=== PATIENT | male | born 1960 | race Caucasian/White ===

== ENCOUNTER 2019-12-27 20:33 | Emergency (ER) | payer SELFPAY ==
[2019-12-27 20:34] VITALS: BP 134/79; PULSE 128; RESP 128; TEMP 36.7; O2SAT 96; BMI 22.8
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
[2019-12-27] MEDS: Diphth,Pertuss(Acell),Tet Vac 0.5 ML Vial IM (21:36)
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
[2019-12-27 21:58] LABS: Absolute Lymphocyte Count 3.59 X10^3/uL (0.83-4.51); Absolute Neutrophil Count 7.6 X10^3/uL (2.0-7.7); Basophil# 0.09 X10^3/uL; Basophil% 0.7 % (0-1); Eosinophil# 0.04 X10^3/uL; Eosinophils% 0.3 % (0-5); Hematocrit 49.1 % (40-54); Hemoglobin 16.6 g/dL (13.0-16.5); Lymphocyte # 3.59 X10^3/ul (4.0); Lymphocyte % 29.2 % (19-41); Mean Corp Hgb Conc 33.8 g/dL (32-36); Mean Corpuscular Hgb 31.6 pg (27.0-32.0); Mean Corpuscular Volume 93.3 fL (80-94); Mean Platelet Vol. 9.7 fl (6.2-12.0); Monocyte# 0.78 X10^3/uL; Monocyte% 6.3 % (0-10); NRBC Flagged by Analyzer 0 % (0-5); Neutrophil # 7.63 X10^3/uL (2.7-7.7); Neutrophil % 62.2 % (47-70); Platelet Count 540 K/mm3 (150-450); RBC Distribution Width CV 12.3 % (11.6-14.6); RBC Distribution Width SD 42.5 fl (35.1-43.9); Red Blood Count 5.26 M/mm3 (4.6-6.2); White Blood Count 12.3 K/mm3 (4.4-11.0)
[2019-12-27 22:07] LABS: Prothrombin Time (Protime)PT. 12.9 SECONDS (11.7-14.9)
[2019-12-27 22:08] LABS: Partial Thromboplast Time 27.3 Seconds (24.1-36.2)
[2019-12-27] MEDS: Morphine 4 MG/ML Syringe IV (22:17)
[2019-12-27 22:19] VITALS: BP 133/87; PULSE 97; RESP 30; O2SAT 97
[2019-12-27 22:19] LABS: AST(SGOT) 23 U/L (15-37); Alanine Aminotransfer ALT/SGPT 29 U/L (16-61); Albumin, Serum 3.8 g/dL (3.2-5.0); Alkaline Phosphatase 84 U/L (45-117); Anion Gap 8 (5-15); BUN 15 mg/dL (7-18); BUN/Creat Ratio 14.2 RATIO (10-20); Calcium,Total 9.2 mg/dL (8.5-10.1); Chloride 107 mmol/L (98-107); Creatinine, Serum 1.06 mg/dL (0.70-1.30); EST Glomerular Filtration Rate 76 mL/min (>60); Est Glom Filt Rate - Afr Amer 92 mL/min (>60); Estimated Creatinine Clearance 73.99 ml/min; Globulin 3.9 g/dL (2.2-4.2); Glucose 133 mg/dL (74-106); Potassium 3.2 mmol/L (3.5-5.1); Protein, Total 7.7 g/dL (6.4-8.2); Sodium Level 141 mmol/L (136-145)
[2019-12-27] MEDS: 0.9% Normal Saline 1,000 ML 999 ML IV (22:43)
[2019-12-27] MEDS: Ondansetron 4 MG/2 ML Vial IV (22:43)
[2019-12-27 23:20] VITALS: BP 133/87; PULSE 97; RESP 30; TEMP 36.7; O2SAT 97
== END 2019-12-27 23:15 | disposition short-term general hospital (02) ==
PROVIDERS: Emergency Provider Emergency Medicine
DX: S22.43XA Multiple fractures of ribs, bilateral, initial encounter for closed fracture (principal); S01.81XA Laceration without foreign body of other part of head, initial encounter; S41.112A Laceration without foreign body of left upper arm, initial encounter; I31.3 Pericardial effusion (noninflammatory); S20.219A Contusion of unspecified front wall of thorax, initial encounter; V43.52XA Car driver injured in collision with other type car in traffic accident, initial encounter; Y93.9 Activity, unspecified; Y92.9 Unspecified place or not applicable; F17.200 Nicotine dependence, unspecified, uncomplicated
CPT/HCPCS: 70450; 71250; 72125; 80053; 80320; 84484; 85025; 85610; 85730; 90715; 93005; 96361; 96374; 96375; 99285; J7030; A4216; G0480; J2405

== ENCOUNTER 2020-06-12 08:00 | Outpatient (RCR) | payer MEDICARE, SELFPAY ==
[2020-06-12] MEDS: COVID-19 VACC, MRNA(PFIZER)/PF 30 MCG/0.3 ML SYRINGE IM (15:38)
== END 2020-09-08 23:59 ==
LOC: IMMUN 08:00
PROVIDERS: Visit Provider Family Medicine
DX: Z23 Encounter for immunization (principal)
CPT/HCPCS: 0001A; 91300

== ENCOUNTER 2021-10-11 15:11 | Inpatient (IN) | payer MEDICAID, SELFPAY ==
[2021-10-11] VITALS (18 sets, daily range): BP systolic 103–144; BP diastolic 61–133; PULSE 63–113; RESP 14–26; TEMP 36.2–36.6; O2SAT 92–100; BMI 22.0; BMI 20.8
--- NOTE | 2021-10-11 15:30 | EKG12_ITS ---
Test Reason : Blood Pressure : / mmHG Vent. Rate : 064 BPM Atrial Rate : 064 BPM P-R Int : 148 ms QRS Dur : 110 ms QT Int : 458 ms P-R-T Axes : 055 -37 -45 degrees QTc Int : 472 ms Sinus rhythm with Premature atrial complexes Left axis deviation Left ventricular hypertrophy ( R in aVL , Sokolow-Steele , Vassar product , Romhilt-Garcia ) ST elevation consider anterolateral injury or acute infarct ACUTE OR / STEMI Abnormal ECG Confirmed by SURJIT MORALES, ELBA ([id number]), mapping editor JAMIE WALKER ([id number]) on 10/13/2021 10:47:56 AM Referred By: Fredi Tracy Confirmed By:ELBA EDDY MD
--- NOTE | 2021-10-11 15:30 | EKG12_ITS ---
Test Reason : Blood Pressure : / mmHG Vent. Rate : 077 BPM Atrial Rate : 077 BPM P-R Int : 150 ms QRS Dur : 104 ms QT Int : 420 ms P-R-T Axes : 038 -27 -48 degrees QTc Int : 475 ms Normal sinus rhythm Moderate voltage criteria for LVH, may be normal variant ( Sokolow-Steele , Surrency product ) ST elevation, consider early repolarization, pericarditis, or injury Nonspecific ST abnormality Abnormal ECG Confirmed by SURJIT MORALES, ELBA ([id number]), editor trade journal JAIME WALKER ([id number]) on 10/13/2021 10:48:20 AM Referred By: Fredi Tracy Confirmed By:ELBA EDDY MD
--- NOTE | 2021-10-11 15:31 | EDS_ITS ---
HPI History of Present Illness Chief Complaint: Chest Pain Narrative Narrative: 61-year-old male presenting with chest pain. He states it started about 1130. He describes it as chest pressure which is improved now. He states is about a 5 of 10. He states that he did have radiation to the bilateral arms. Currently its only going into the right arm. Patient states that he was sweaty and nauseous. He states he laid on the floor to try to feel better. He states he does not have any medical problems and the last time he saw physician was a couple years ago. He is an everyday smoker. He denies cardiac history. No history of DVT/PE and no risk factors. PFSH PFSH Medical History (Updated 10/11/21 @ 17:19 by Hoda Thapa) Alcohol abuse Bipolar disorder Chronic pain GERD (gastroesophageal reflux disease) Hypertension Substance abuse Medical History no medical history Home Medications hydrocodone-acetaminophen 5-325mg 5mg-325mg 1 - 2 tab PO Q4H PRN PRN Pain ##20 07/08/13 [Rx Last Taken Unknown] cephalexin 500 mg capsule 500 mg PO Q6 ##40 10/26/13 [Rx Last Taken Unknown] Vit B Complex & C No.19/FA/D3 01/20/14 [History Last Taken Unknown] Allergy/AdvReac Type Severity Reaction Status Date / Time No Known Allergies Allergy Verified 10/11/21 15:15 Surgical History (Updated 10/11/21 @ 17:19 by Hoda Thapa) History of appendectomy Surgical History no surgical history Social History Smoking Status: Current every day smoker tobacco type: cigarettes ROS ROS ED Constitutional Constitutional ED: Denies chills or fever(s) Eyes Eyes: Denies blurry vision or change in vision ENT ENT ED: Denies rhinorrhea or sore throat Cardiovascular Cardiovascular: Reports chest pain Respiratory/Chest Respiratory/Chest: Denies cough or dyspnea Gastrointestinal Gastrointestinal: Denies abdominal pain or constipation Genitourinary Genitourinary ED: Denies dysuria or hematuria Musculoskeletal Musculoskeletal: Denies arthralgias or back pain Integumentary Denies abscess Neurologic Neurologic: Denies headache(s) or paresthesias Psychiatric Psychiatric: Denies anxiety or depression EXAM Physical Exam Const Vital Signs: 10/11/21 15:12 10/11/21 15:12 10/11/21 15:31 Temperature 97.1 F L Temperature Source Temporal Pulse Rate 83 75 Respiratory Rate 20 H 20 H Blood Pressure 144/133 H 123/81 H Blood Pressure Mean 136 95 Pulse Ox 97 96 Oxygen Delivery Method Room Air Room Air Room Air 10/11/21 15:39 10/11/21 15:54 Temperature Temperature Source Pulse Rate 81 Respiratory Rate 16 Blood Pressure 121/81 H 116/80 Blood Pressure Mean Pulse Ox Oxygen Delivery Method Positive well nourished General Appearance ED: other Appears to be in pain ; Negative for pallor HEENT Reports moist mucous membranes and dry mucous membranes atraumatic Mouth ED: Yes dry mucous membranes Mouth: dry mucous membranes Eyes PERRL and EOMs intact bilaterally General Eye ED: Negative for pale conjunctiva or scleral icterus Resp normal respiratory effort and clear to auscultation bilaterally Effort and Inspection: Negative for respiratory distress Auscultation: Negative for rales, rhonchi or wheezes Cardio regular rate and regular rhythm GI normal to inspection, nondistended, normoactive bowel sounds Neuro oriented x3 and CN's II-XII intact bilaterally Sensorium / Orientation: awake and alert Motor Exam: strength 5/5 throughout Psych mental status grossly normal Skin General Skin Exam: Negative for jaundice or pallor Heart Score History: Highly Suspicious ECG: Nonspecific Repolarization Age: >45 - <65 years Risk Factors: 1 or 2 Risk Factors Score: 5 MDM MDM MDM Narrative Medical decision making narrative: Patient presenting with chest pain. He states he has no history of cardiac disease. He is a smoker. He has not seen a physician in 2 years. Patient reports he was diaphoretic and nauseous. He was laying on the ground to try to improve. I obtained an EKG on arrival which is sinus rhythm with a ventricular rate of 77 bpm with nonspecific repolarization. There is T wave inversions in lead II, 3, aVF. This does not appear to be a STEMI on my interpretation but I do believe it is slightly abnormal. Patient was given 1 dose of nitroglycerin and states he was having an odd sensation in his chest. Repeat EKG is performed and on my interpretation this shows an anterolateral OR. At this point a STEMI was called. Patient given heparin, Brilinta. He already received aspirin 324 mg p.o. Chest xray negative for acute findings Patient is currently receiving a 1 L bolus of IV fluids. Cardiology at bedside. Patient will be taken to the Economic Research Assistant. He is transported in stable condition. troponin returned at 327 after patient transported. CBC and BMP unremarkable. Impression: 1. STEMI Lab Data Attestation: I reviewed the patient's lab results. Labs: Laboratory Results - last 24 hr 10/11/21 10/11/21 15:15 15:15 WBC 11.0 RBC 5.34 Hgb 16.9 H Hct 49.6 MCV 92.9 MCH 31.6 MCHC 34.1 RDW Std Deviation 43.7 RDW Coeff of Reggie 12.9 Plt Count 447 MPV 9.8 Immature Gran % (Auto) 0.500 Neut % (Auto) 60.4 Lymph % (Auto) 27.8 Isabel[place] % (Auto) 8.8 Eos % (Auto) 1.9 Baso % (Auto) 0.6 Absolute Neuts (auto) 6.6 Absolute Lymphs (auto) 3.05 Nucleated RBC % 0 Sodium 142 Potassium 4.0 Chloride 106 Carbon Dioxide 27.0 Anion Gap 9 BUN 15 Creatinine 0.95 Estim Creat Clear Calc 77.89 Est GFR (MDRD) Af Amer 104 Est GFR (MDRD) Non-Af 86 BUN/Creatinine Ratio 15.8 Glucose 107 H Calcium 9.3 Troponin I High Sens 327 H* Radiography Diagnostic Testing: Clinical Impression(s) from Imaging Studies Chest X-Ray 10/11/21 15:44 IMPRESSION: Multiple rib fractures on the right, age indeterminate. Otherwise no acute disease. Electronically Signed: James Jimenez MD at 16:56 EDT Reading Location ID and State: [facility] / [place] , Service support , Discharge Plan Disposition Disposition: Acute Care Hospital [facility] Discharge Date/Time: 10/11/21 16:05
[2021-10-11] MEDS: 0.9% Normal Saline 1,000 ML 1000 ML IV (15:36)
[2021-10-11] MEDS: Aspirin 81 MG TAB.CHEW 324 MG PO (15:36)
[2021-10-11 15:38] LABS: Absolute Lymphocyte Count 3.05 X10^3/uL (0.83-4.51); Absolute Neutrophil Count 6.6 X10^3/uL (2.0-7.7); Basophil# 0.07 X10^3/uL; Basophil% 0.6 % (0-1); Eosinophil# 0.21 X10^3/uL; Eosinophils% 1.9 % (0-5); Hematocrit 49.6 % (40-54); Hemoglobin 16.9 g/dL (13.0-16.5); Lymphocyte # 3.05 X10^3/ul (0.83-4.51); Lymphocyte % 27.8 % (19-41); Mean Corp Hgb Conc 34.1 g/dL (32-36); Mean Corpuscular Hgb 31.6 pg (27.0-32.0); Mean Corpuscular Volume 92.9 fL (80-94); Mean Platelet Vol. 9.8 fl (6.2-12.0); Monocyte# 0.96 X10^3/uL; Monocyte% 8.8 % (0-10); NRBC Flagged by Analyzer 0 % (0-5); Neutrophil # 6.62 X10^3/uL (2.7-7.7); Neutrophil % 60.4 % (47-70); Platelet Count 447 K/mm3 (150-450); RBC Distribution Width CV 12.9 % (11.6-14.6); RBC Distribution Width SD 43.7 fl (35.1-43.9); Red Blood Count 5.34 M/mm3 (4.6-6.2)
[2021-10-11] MEDS: Nitroglycerin SL (ED/IMG/CATH) 0.4 MG TABLET SL (15:39)
--- NOTE | 2021-10-11 15:44 | RAD_ITS ---
STUDY: X-RAY CHEST REASON FOR EXAM: Male, 61 years old. chest pain TECHNIQUE: Single frontal view of the chest. COMPARISON: CT chest 12/27/2019 FINDINGS: The lungs are clear and expanded. There is no demonstrated pleural abnormality. Normal size heart. Normal mediastinum and julissa. Normal visualized pulmonary arteries. Normal visualized aortic arch and descending thoracic aorta. Normal visualized thoracic spine. Multiple rib fractures on the left, age indeterminate. There is no demonstrated abnormality of the visualized soft tissue structures of the upper abdomen. RAD/Chest 1 View (Portable) IMPRESSION: Multiple rib fractures on the right, age indeterminate. Otherwise no acute disease. Electronically Signed: James Jimenez MD at 16:56 EDT ,
[2021-10-11] MEDS: TICAGRELOR 90 MG TABLET 180 MG PO (15:56)
[2021-10-11] MEDS: Heparin Injection 5,000 UNITS/ML Syringe 5000 UNITS IV (15:56)
[2021-10-11 16:18] LABS: Anion Gap 9 (5-15); BUN 15 mg/dL (7-18); BUN/Creat Ratio 15.8 RATIO (10-20); Calcium,Total 9.3 mg/dL (8.5-10.1); Chloride 106 mmol/L (98-107); Creatinine, Serum 0.95 mg/dL (0.70-1.30); EST Glomerular Filtration Rate 86 mL/min (>60); Est Glom Filt Rate - Afr Amer 104 mL/min (>60); Estimated Creatinine Clearance 77.89 ml/min; Glucose 107 mg/dL (74-106); Sodium Level 142 mmol/L (136-145); Troponin-I HS (w/2H Reflex) 327 pg/mL (3.0-78.0)
--- NOTE | 2021-10-11 16:24 | CHAPLAIN ---
Type of Pastoral Visit ___ Initial Visit ___ Follow-up Visit ___ On-call Visit ___ General Patient Visit ___ Spiritual Assessment ___ Family Conference ___ Bereavement _x__ Rapid Response ___ Code Blue ___ Other (describe below) Pastoral Care Referral From ___ Patient ___ Family ___ Nurse ___ Physician ___ [place] Pen Cartridge Tester ___ Wire Preparation Worker _x__ Other (describe below) Sacrament/Intervention ___ Active listening ___ Anointing ___ Pentecostalism ___ Bereavement ___ Communion ___ Tonya exploration ___ ___ Life review ___ Prayer ___ Reconciliation ___ Sacrament of Sick _x__ Supportive presence ___ Wedding ___ Other (describe below) Pastoral Comments went to ED on stemi alert; patient was being prepped for Product Safety Coordinator; introduced self and asked if family members were coming; pt was actively texting family members at this moment and not sure if anyone was coming; pt was alert and being wheeled to Product Safety Coordinator; SW also available in ED for support if family arrived;
--- NOTE | 2021-10-11 16:54 | CM.ED ---
Social Work Note Reason for Referral: STEMI Alert SW responded to STEMI Alert. SW looked in pt's room, no family present. Chaplain Ferdinand, spoke with pt who was updating his family. SW to remain available should additional needs arise. Grisel Porter PAPER REEL OPERATOR, DENTAL AIDE
--- NOTE | 2021-10-11 17:11 | ECHOD_ITS ---
Reason For Study: S/P MD Procedure This was a 2D Doppler, Color Flow transthoracic echocardiogram. Exam performed portable in ICU/CCU. Left Ventricle Normal LV size. There is evidence of diastolic dysfunction. The estimated ejection fraction is 35 %. hypokinesis of the lateral wall and apex. Right Ventricle Normal RV size. Normal systolic function. Atria Normal left atrium. Normal right atrium. No doppler evidence for ASD. Mitral Valve There is no mitral valve stenosis. Trivial mitral valve insufficiency. Tricuspid Valve There is no tricuspid stenosis. Trivial tricuspid valve insufficiency. Unable to estimate RV systolic pressure due to insufficient tricuspid regurgitant envelope. Aortic Valve Trisinus/trileaflet aortic valve. There is no aortic stenosis. Trivial aortic valve insufficiency. Pulmonic Valve There is no pulmonic valvular stenosis. No pulmonic valve insufficiency. Great Vessels Normal aortic root. Pericardium/Pleural No pericardial effusion. MMode/2D Measurements & Calculations LVIDd: 5.8 cm IVSd: 1.4 cm Ao root diam: 3.2 cm LVIDs: 4.6 cm LVPWd: 1.2 cm RVDd: 3.5 cm FS: 20.5 % LAV(MOD-sp4): 54.1 ml LVAd ap4: 43.2 cm2 LVAd ap2: 42.5 cm2 LVLd ap4: 9.0 cm LVLd ap2: 8.6 cm EDV(MOD-sp4): 165.3 ml EDV(MOD-sp2): 183.5 ml EDV(sp4-el): 175.5 ml EDV(sp2-el): 177.9 ml LVAs ap4: 34.3 cm2 LVAs ap2: 32.3 cm2 LVLs ap4: 8.8 cm LVLs ap2: 8.1 cm ESV(MOD-sp4): 112.7 ml ESV(MOD-sp2): 112.4 ml ESV(sp4-el): 113.9 ml ESV(sp2-el): 109.0 ml EF(MOD-sp4): 31.8 % EF(MOD-sp2): 38.7 % EF(sp4-el): 35.1 % SV(MOD-sp4): 52.6 ml SV(MOD-sp2): 71.1 ml SV(sp4-el): 61.5 ml LA dimension(2D): 3.6 cm LA A4 area: 20.2 cm2 RA A4 area: 13.5 cm2 Time Measurements MV dec time: 0.20 sec Doppler Measurements & Calculations MV E max ramesh: 70.2 cm/sec Lat Peak E' Ramesh: 8.3 cm/sec Med Peak E' Ramesh: 5.8 cm/sec MV A max ramesh: 23.3 cm/sec E/E' lat: 8.4 E/E' med: 12.1 MV E/A: 3.0 MV dec slope: 355.6 cm/sec2 Ao V2 max: 112.1 cm/sec LV V1 max: 101.3 cm/sec Ao max P.0 mmHg LV V1 max P.1 mmHg MR max ramesh: 458.1 cm/sec MR max P.0 mmHg ECHO/Echo Complete Interpretation Summary The estimated ejection fraction is 35 %. There is evidence of diastolic dysfunction. hypokinesis of the lateral wall and apex Trivial mitral valve insufficiency. Trivial aortic valve insufficiency. Ordering Physician: Fredi Tracy Referring Physician: Fredi Tracy Performed By: Neli Arango RCS
--- NOTE | 2021-10-11 17:12 | PCM.CONS.C ---
Assessment & Plan Assessment/Plan (1) STEMI (ST elevation myocardial infarction): PLAN: treated with MORRO to D1. Recommend staged PCI of LCx. Will keep pt.on ASA, brilinta, BB, statin. Emphasized smoking cessation. Admit to CCU. 2d echo to check LVEF HPI Consult Data Date of Consult: 10/11/21 HPI Narrative Reason for Consultation: STEMI HPI Narrative: BAN ANSARI, is a 61 M who presents with chest pain on and off since 11 am today. When he presented to the ER he had pain which then resolved. He had pain again and an EKG done at 3:50 pm revealed more changes compared to the initial EKG consistent with anterolateral STEMI. He underwent emergent cardiac cath which revealed 90% stenosis in a large D1 branch that was treated with MORRO. He has residual 70-80% stenosis in the LCx that will be treated at a later date. There was a small OM2 branch that appears to be chronically occluded. Pt. is CP free at the end of the procedure. A 6 lead EKG done with the patient on the cath table revealed resolution of the ST elevagtion in I and aVL. PFSH Medical History (Updated 10/11/21 @ 17:19 by Hoda Thapa) Alcohol abuse Bipolar disorder Chronic pain GERD (gastroesophageal reflux disease) Hypertension Substance abuse Medical History no medical history Home Medications hydrocodone-acetaminophen 5-325mg 5mg-325mg 1 - 2 tab PO Q4H PRN PRN Pain ##20 07/08/13 [Rx Last Taken Unknown] cephalexin 500 mg capsule 500 mg PO Q6 ##40 10/26/13 [Rx Last Taken Unknown] Vit B Complex & C No.19/FA/D3 01/20/14 [History Last Taken Unknown] Allergy/AdvReac Type Severity Reaction Status Date / Time No Known Allergies Allergy Verified 10/11/21 15:15 Surgical History (Updated 10/11/21 @ 17:19 by Hoda Thapa) History of appendectomy Surgical History no surgical history Social History Smoking Status: Current every day smoker tobacco type: cigarettes Physical Exam Const alert, oriented x3 and no apparent distress HEENT normocephalic Eyes no scleral icterus Resp normal respiratory effort Cardio regular rate and regular rhythm Extremity no pedal edema Skin no rashes or lesions noted Psych mental status grossly normal Risk Stratification Risk Stratification Applicable: No Charges/Coding Visit Charges Inpatient E&M: 06252 Init Hosp L2 Objective Data Vital Signs: Vital Signs Temp Pulse Resp BP Pulse Ox O2 Del Method 97.1 F L 85 16 116/80 96 Room Air 10/11/21 15:12 10/11/21 17:04 10/11/21 15:54 10/11/21 15:54 10/11/21 15:12 10/11/21 15:31 Oxygen Delivery Method Room Air Weight: 145 lb Body Mass Index (BMI) 22.0 Lab / Micro Data Result Diagrams: 10/11/21 15:15 10/11/21 15:15 Labs: Laboratory Results - last 24 hr 10/11/21 15:15: WBC 11.0, RBC 5.34, Hgb 16.9 H, Hct 49.6, MCV 92.9, MCH 31.6, MCHC 34.1, RDW Std Deviation 43.7, RDW Coeff of Reggie 12.9, Plt Count 447, MPV 9.8, Immature Gran % (Auto) 0.500, Neut % (Auto) 60.4, Lymph % (Auto) 27.8, [place] % (Auto) 8.8, Eos % (Auto) 1.9, Baso % (Auto) 0.6, Absolute Neuts (auto) 6.6, Absolute Lymphs (auto) 3.05, Nucleated RBC % 0 10/11/21 15:15: Sodium 142, Potassium 4.0, Chloride 106, Carbon Dioxide 27.0, Anion Gap 9, BUN 15, Creatinine 0.95, Estim Creat Clear Calc 77.89, Est GFR (MDRD) Af Amer 104, Est GFR (MDRD) Non-Af 86, BUN/Creatinine Ratio 15.8, Glucose 107 H, Calcium 9.3, Troponin I High Sens 327 H* Cardiology Labs/Tests 10/11/21 15:15: WBC 11.0, RBC 5.34, Hgb 16.9 H, Hct 49.6, MCV 92.9, MCH 31.6, MCHC 34.1, Plt Count 447, MPV 9.8, Immature Gran % (Auto) 0.500, Neut % (Auto) 60.4, Lymph % (Auto) 27.8, [place] % (Auto) 8.8, Eos % (Auto) 1.9, Baso % (Auto) 0.6, Absolute Neuts (auto) 6.6, Nucleated RBC % 0 10/11/21 15:15: Sodium 142, Potassium 4.0, Chloride 106, Carbon Dioxide 27.0, Anion Gap 9, BUN 15, Creatinine 0.95, Est GFR (MDRD) Af Amer 104, Est GFR (MDRD) Non-Af 86, BUN/Creatinine Ratio 15.8, Glucose 107 H, Calcium 9.3 Rhythm: EKG: ECHO: Stress Test: Cardiac Cath: PCI: CT Surgery: Holter monitor: EPS: PPM: CXR: Chest CT Scan: Radiography Diagnostic Testing: Radiology Impression Chest X-Ray 10/11/21 15:44 IMPRESSION: Multiple rib fractures on the right, age indeterminate. Otherwise no acute disease. Electronically Signed: James Jimenez MD at 16:56 EDT ,
--- NOTE | 2021-10-11 17:15 | EKG12_ITS ---
Test Reason : AM EKG Blood Pressure : / mmHG Vent. Rate : 059 BPM Atrial Rate : 059 BPM P-R Int : 138 ms QRS Dur : 102 ms QT Int : 448 ms P-R-T Axes : 056 -07 -65 degrees QTc Int : 443 ms Sinus bradycardia Septal infarct , age undetermined , cannot be excluded T wave abnormality, consider anterior ischemia Abnormal ECG Confirmed by SURJIT MORALES, ELBA ([id number]), field map editor JAIME WALKER ([id number]) on 10/13/2021 10:52:39 AM Referred By: Fredi Tracy Confirmed By:ELBA EDDY MD
--- NOTE | 2021-10-11 17:24 | HP.PCM.HOS_ITS ---
HPI - General General Date of Admission: 10/11/21 Date of Service: 10/11/21 Chief Complaint: Chest discomfort HPI Narrative BAN ANSARI, is a 61 M with history of polysubstance abuse including alcohol as well as methamphetamine who presented to the emergency department with chest discomfort. Symptoms started around 11 AM on the morning of his admission. EKG obtained in the emergency department demonstrated ischemia in the anterior leads . This became more pronounced with ST segment elevation in aVL and L1 patient underwent emergency left heart catheterization and was found to have 90% stenosis in the large diagonal branch. He underwent PCI with a MORRO and subsequently transferred to the intensive care unit following his procedure [facility] Medical History Alcohol abuse Bipolar disorder Chronic pain GERD (gastroesophageal reflux disease) Hypertension Substance abuse Medical History no medical history Home Medications hydrocodone-acetaminophen 5-325mg 5mg-325mg 1 - 2 tab PO Q4H PRN PRN Pain ##20 07/08/13 [Rx Last Taken Unknown] cephalexin 500 mg capsule 500 mg PO Q6 ##40 10/26/13 [Rx Last Taken Unknown] Vit B Complex & C No.19/FA/D3 01/20/14 [History Last Taken Unknown] Allergy/AdvReac Type Severity Reaction Status Date / Time No Known Allergies Allergy Verified 10/11/21 15:15 Family History (Updated 10/11/21 @ 17:[address] Kyle Holder MD) Brother Pancreatic cancer other Surgical History (Updated 10/11/21 @ 17:19 by Hoda Thapa) History of appendectomy Surgical History no surgical history Social History Smoking Status: Current every day smoker tobacco type: cigarettes ROS ROS Narrative GENERAL: denies fever, chills, night sweats, HEENT: denies headache, sinus congestion, RESPIRATORY: denies cough, sputum production, CARDIAC: chest pain, palpitations, orthopnea, PND GASTROINTESTINAL: denies abdominal pain, nausea, GENITOURINARY: denies dysuria, urgency, frequency, heamaturia EXTREMITY: denies swelling MUSCULOSKELETAL: denies current joint pain or tenderness NEUROLOGIC: denies focal numbness, weakness, tingling HEMATOLOGIC: denies easy bruising and/or hemorrhage INTEGUMENT: denies rashes PSYCHIATRIC: denies suicidal or homicidal ideation Vital Signs Vital Signs Vital Signs: 10/11/21 15:12 10/11/21 15:12 10/11/21 15:31 Temperature 97.1 F L Temperature Source Temporal Pulse Rate 83 75 Respiratory Rate 20 H 20 H Blood Pressure 144/133 H 123/81 H Blood Pressure Mean 136 95 Pulse Ox 97 96 Oxygen Delivery Method Room Air Room Air Room Air 10/11/21 15:39 10/11/21 15:54 10/11/21 17:04 Temperature Temperature Source Pulse Rate 81 85 Respiratory Rate 16 Blood Pressure 121/81 H 116/80 Blood Pressure Mean Pulse Ox Oxygen Delivery Method Weight Weight: 64 kg Body Mass Index (BMI) 20.8 Results Lab / Micro Data Result Diagrams: 10/11/21 15:15 10/11/21 15:15 Labs: Laboratory Results - last 24 hr 10/11/21 15:15: WBC 11.0, RBC 5.34, Hgb 16.9 H, Hct 49.6, MCV 92.9, MCH 31.6, MCHC 34.1, RDW Std Deviation 43.7, RDW Coeff of Reggie 12.9, Plt Count 447, MPV 9.8, Immature Gran % (Auto) 0.500, Neut % (Auto) 60.4, Lymph % (Auto) 27.8, [place] % (Auto) 8.8, Eos % (Auto) 1.9, Baso % (Auto) 0.6, Absolute Neuts (auto) 6.6, Absolute Lymphs (auto) 3.05, Nucleated RBC % 0 10/11/21 15:15: Sodium 142, Potassium 4.0, Chloride 106, Carbon Dioxide 27.0, Anion Gap 9, BUN 15, Creatinine 0.95, Estim Creat Clear Calc 77.89, Est GFR (MDRD) Af Amer 104, Est GFR (MDRD) Non-Af 86, BUN/Creatinine Ratio 15.8, Glucose 107 H, Calcium 9.3, Troponin I High Sens 327 H* Radiology Impression Chest X-Ray 10/11/21 15:44 IMPRESSION: Multiple rib fractures on the right, age indeterminate. Otherwise no acute disease. Electronically Signed: James Jimenez MD at 16:56 EDT , Assessment & Plan Assessment/Plan (1) STEMI (ST elevation myocardial infarction): PLAN: Plan Patient is a 61-year-old gentleman who presented with chest discomfort asses sment was consistent with acute STEMI underwent emergency left heart catheterization with PCI and MORRO to large D1 branch 1. Acute non-STEMI (anterolateral STEMI) ? Underwent emergency left heart catheterization found to have a large D1 stenosis, 70 to 80% stenosis in the left circumflex and a small OM 2 branch that appears to be chronically occluded. Patient underwent PCI with MORRO to the diagonal branch lesion with plans for patient to undergo staged intervention of his left circumflex lesion intervention 2. Essential hypertension ? Currently not on any medication 3. Bipolar disorder ? Per history 4. Chronic alcohol dependence ? Patient was counseled on cessation we will place on Ativan for DT precautions 5. Polysubstance dependence including methamphetamine use ? Counseled on cessation 6. Tobacco dependence - Counseled on cessation, offered nicotine patch for tobacco cravings 7. DVT prophylaxis ? FABIAN Odell Charges/Coding Visit Charges Inpatient E&M: 44403 Init Hosp L3
[2021-10-11 17:35] LABS: Reflex Troponin-HS? (from REC) Y
--- NOTE | 2021-10-11 17:42 | CL.I_ITS ---
Patient Name: BAN ANSARI Study Date: 10/11/2021 Performing: Adebayo Tracy MD Ht: 68 inches 173 cm : 1960 Wt: 145.7 lbs 66 kg Age: 61 Gender: male BSA: 1.79 PROCEDURE(S) PERFORMED [id number])[facility] [id number])AMI, MORRO OR PTCA, ARTERY/GRAFT, SINGLE VESSEL CLINICAL PROFILE AND CO-MORBIDITIES Indications: ACS <= 24 hrs Heart Failure: None Stress/Imaging Stress/Image Study Performed: No CAD Presentations: STEMI. Symptom onset Date/Time: 10/11/21 Time: 11 am CONCLUSIONS CAD as described. Successful PCI of D1 with MORRO. RECOMMENDATIONS Staged PCI of LCx in 3-4 weeks DESCRIPTION OF PROCEDURE The patient arrived to the procedure lab. The risks and benefits of the procedure as well as a full d escription of our services here and lack of surgical backup were fully explained to the patient and/o r their significant other prior to the catheterization. The Timeout was completed, verifying the frankie ect patient and procedure. The patient's procedural site was prepped and draped in the usual fashion. Local anesthetic was given subcutaneously to right radial region with Lidocaine 2%. Using a modified Seldinger technique, . Right Coronary Artery selective angiography was then performed in multiple v iews using a 5 Fr. JR 4 catheter XB 3.0 Guide catheter was inserted and engaged into the LCA. Runthrough Guide wire was advanced t o the 1st Diagonal. Emerge 2.00x12 Balloon catheter was inserted. PTCA balloon inflated at 10 atms fo r 20 secs. Angiogram performed post balloon dilatation. Orsiro 3.0x26 Drug Eluting stent was inserted . Angiogram performed post stent deployment. NC Emerge 3.00x20 Balloon catheter was inserted. Angiogr am performed post balloon dilatation. The arterial sheath was pulled and a TR Band was applied for hemostasis. The arterial sheath was pulled and a TR Band was applied for hemostasis w/13 ml air CORONARY ANGIOGRAPHY DOMINANCE: Right Dominant LEFT HEART ASSESSMENT LEFT MAIN: Mild luminal irregularities LEFT ANTERIOR DESCENDING ARTERY: Mild luminal irregularities. Small vessel and is intramyocardial. DIAGONAL 1: Proximal - 90-95 % Stenosis. Large vessel CIRCUMFLEX ARTERY: PROX CIRC: 70-80 % Stenosis OM 2: Proximal - is occluded. Appears to be chronic. We attempted to cross this lesion after PCI of D 1 and were unsuccessful. OM 3: Ostial - 70-80 % Stenosis RIGHT CORONARY ARTERY: Mild luminal irregularities VALVE FINDINGS: No Aortic Valve Stenosis INTERVENTION INFORMATION LESION SITE: 1st Diagonal (Proximal) Lesion Complexity: High/C, chronic total occlusion: No, lesion at bifurcation: No, thrombus present: No, lesion length: 24 mm, culprit lesion: Yes, Previously treated lesion: No Pre Stenosis: 95 % Pre intervention JENNIFER flow: 3 PROCEDURE: Drug Eluting Stent with pre and post dilatation Post Stenosis: 0 % Post intervention JENNIFER flow: 3 Lesion Devices: Terumo .014 Runthrough Extra Floppy 180cm straight Alex Sci EMERGE MR 2.00x12 BALLOON Biotronik Orsiro [place] MR MORRO 3.0x26 Alex Sci NC EMERGE MR 3.00x20 BALLOON COMPLICATIONS No Complications PROCEDURE MEDICATIONS Oxygen: 2 L/min via nasal cannula Heparin given IA 10/11/2021 16:10:59 Verapamil 2.5mg, Ntg 100mcgs, 1000 units of Heparin given IA 10/11/2021 16:10:59 SUMMARY OF HEMODYNAMIC DATA Time AIR REST ECG 16:07:57 LV 126/-4, 2 16:13:19 LV 134/0, 20 16:13:25 LVp 122/-1, 9 16:13:41 AOp 117/66 (86) 16:13:46 AO 111/65 (82) SA 16:13:48 ECG 16:43:08 Signed By Adebayo Tracy MD On 10/11/2021 17:42:03 Adebayo Tracy MD
[2021-10-11] MEDS: 0.9% Normal Saline 1,000 ML 60 ML IV (17:54)
[2021-10-11 19:29] LABS: Prothrombin Time (Protime)PT. 12.8 SECONDS (11.7-14.9)
[2021-10-11 19:30] LABS: Partial Thromboplast Time 31.5 Seconds (24.1-36.2)
[2021-10-11] MEDS: Metoprolol Tartrate 25 MG Tablet 12.5 MG PO (21:16)
[2021-10-11] MEDS: Famotidine 20 MG Tablet PO (21:16)
[2021-10-11] MEDS: Atorvastatin Calcium 40 MG Tablet PO (21:17)
[2021-10-11] MEDS: TICAGRELOR 90 MG TABLET PO (21:17)
[2021-10-12] VITALS (20 sets, daily range): BP systolic 94–123; BP diastolic 53–78; PULSE 55–86; RESP 12–23; TEMP 36.5–36.8; O2SAT 97–100
[2021-10-12 05:17] LABS: Hemoglobin 14.7 g/dL (13.0-16.5); Mean Corp Hgb Conc 34.2 g/dL (32-36); Mean Corpuscular Volume 93.7 fL (80-94); Mean Platelet Vol. 9.4 fl (6.2-12.0); Platelet Count 377 K/mm3 (150-450); RBC Distribution Width SD 44.3 fl (35.1-43.9); Red Blood Count 4.59 M/mm3 (4.6-6.2); White Blood Count 11.1 K/mm3 (4.4-11.0)
[2021-10-12 05:45] LABS: ALB/GLOB Ratio 0.9 RATIO (0.9-2.4); AST(SGOT) 47 U/L (15-37); Alanine Aminotransfer ALT/SGPT 26 U/L (16-61); Albumin, Serum 2.8 g/dL (3.2-5.0); Alkaline Phosphatase 62 U/L (45-117); Anion Gap 6 (5-15); BUN 13 mg/dL (7-18); BUN/Creat Ratio 16.3 RATIO (10-20); Bilirubin, Direct 0.14 mg/dL (0.00-0.30); Calcium,Total 8.4 mg/dL (8.5-10.1); Chloride 109 mmol/L (98-107); EST Glomerular Filtration Rate 106 mL/min (>60); Est Glom Filt Rate - Afr Amer 128 mL/min (>60); Estimated Creatinine Clearance 90.42 ml/min; Globulin 3.2 g/dL (2.2-4.2); Glucose 99 mg/dL (74-106); Magnesium 2.3 mg/dL (1.6-2.6); Potassium 4.2 mmol/L (3.5-5.1); Sodium Level 141 mmol/L (136-145); Thyroid Stim Hormone (TSH) 1.52 uIU/mL (0.358-3.74)
--- NOTE | 2021-10-12 07:22 | PCM.PN.HOSP ---
Subjective Subjective Patient is a 61-year-old gentleman with history of polysubstance abuse admitted with chest pain found to have STEMI underwent PCI with intervention admitted to the intensive care unit subsequently Seen this a.m. patient denies any chest discomfort. Telemetry monitoring did shows some occasional ectopic beats Objective Data Objective Data Vital Signs: Vital Signs Temp Pulse Resp BP Pulse Ox O2 Del Method 97.7 F L 61 20 H 104/67 99 Room Air 10/12/21 04:00 10/12/21 07:00 10/12/21 07:00 10/12/21 07:00 10/12/21 07:00 10/12/21 07:00 Oxygen Delivery Method Room Air Weight: 64.3 kg Body Mass Index (BMI) 20.8 Intake & Output: Intake and Output for Last 24 Hours 10/10/21 10/11/21 10/12/21 23:59 23:59 23:59 Intake Total 1336 / 1336 Balance 1336 / 1336 Lab / Micro Data Result Diagrams: 10/12/21 05:11 10/12/21 05:11 Labs: Laboratory Results - last 24 hr 10/11/21 15:15: WBC 11.0, RBC 5.34, Hgb 16.9 H, Hct 49.6, MCV 92.9, MCH 31.6, MCHC 34.1, RDW Std Deviation 43.7, RDW Coeff of Reggie 12.9, Plt Count 447, MPV 9.8, Immature Gran % (Auto) 0.500, Neut % (Auto) 60.4, Lymph % (Auto) 27.8, [place] % (Auto) 8.8, Eos % (Auto) 1.9, Baso % (Auto) 0.6, Absolute Neuts (auto) 6.6, Absolute Lymphs (auto) 3.05, Nucleated RBC % 0 10/11/21 15:15: Sodium 142, Potassium 4.0, Chloride 106, Carbon Dioxide 27.0, Anion Gap 9, BUN 15, Creatinine 0.95, Estim Creat Clear Calc 77.89, Est GFR (MDRD) Af Amer 104, Est GFR (MDRD) Non-Af 86, BUN/Creatinine Ratio 15.8, Glucose 107 H, Calcium 9.3, Troponin I High Sens 327 H* 10/11/21 15:15: PT 12.8, INR 1.0, APTT 31.5 10/12/21 05:11: WBC 11.1 H, RBC 4.59 L, Hgb 14.7, Hct 43.0, MCV 93.7, MCH 32.0, MCHC 34.2, RDW Std Deviation 44.3 H, RDW Coeff of Reggie 13.0, Plt Count 377, MPV 9.4 10/12/21 05:11: Sodium 141, Potassium 4.2, Chloride 109 H, Carbon Dioxide 26.0, Anion Gap 6, BUN 13, Creatinine 0.80, Estim Creat Clear Calc 90.42, Est GFR (MDRD) Af Amer 128, Est GFR (MDRD) Non-Af 106, BUN/Creatinine Ratio 16.3, Glucose 99, Calcium 8.4 L, Magnesium 2.3, Total Bilirubin 0.80, Direct Bilirubin 0.14, AST 47 H, ALT 26, Alkaline Phosphatase 62, Total Protein 6.0 L, Albumin 2.8 L, Globulin 3.2, Albumin/Globulin Ratio 0.9, TSH 1.52 10/12/21 05:11: Phosphorus 3.0 Radiography Diagnostic Testing: Radiology Impression Chest X-Ray 10/11/21 15:44 IMPRESSION: Multiple rib fractures on the right, age indeterminate. Otherwise no acute disease. Electronically Signed: James Jimenez MD at 16:56 EDT , Physical Exam Narrative GENERAL: cooperative HEENT: Atraumatic; EYES; Anicteric, Normal Conjunctiva NECK; supple, normal thyroid, RESPIRATORY: Diminished to auscultation CARDIOVASCULAR: Regular S1 S2, GI: soft, normoactive bowel sounds, : No Renal angle tenderness; EXTREMITIES: No edema, no clubbing, MUSCULOSKELETAL: no muscle wasting NEURO: Awake; no lateralizing signs. SKIN: No Rash PSYCH; Flat affect Assessment & Plan Assessment/Plan (1) STEMI (ST elevation myocardial infarction): PLAN: Plan Patient is a 61-year-old gentleman who presented with chest discomfort assessment was consistent with acute STEMI underwent emergency left heart catheterization with PCI and MORRO to large D1 branch 1. Acute non-STEMI (anterolateral STEMI) ? Underwent emergency left heart catheterization found to have a large D1 stenosis, 70 to 80% stenosis in the left circumflex and a small OM 2 branch that appears to be chronically occluded. Patient underwent PCI with MORRO to the diagonal branch lesion with plans for patient to undergo staged intervention of his left circumflex lesion intervention -10/12/2021 postprocedure day 1. Patient denies any chest discomfort 2. Essential hypertension ? Currently not on any medication 3. Bipolar disorder ? Per history 4. Chronic alcohol dependence ? Patient was counseled on cessation we will place on Ativan for DT precautions ? 10/12/2021 patient was placed on phenobarb taper 5. Polysubstance dependence including methamphetamine use ? Counseled on cessation 6. Tobacco dependence - Counseled on cessation, offered nicotine patch for tobacco cravings 7. DVT prophylaxis ? FABIAN Odell Charges/Coding Visit Charges Inpatient E&M: 84894 Subs Hosp L3
[2021-10-12] MEDS: Famotidine 20 MG Tablet PO ×2 (09:04→21:12)
[2021-10-12] MEDS: Aspirin E.C. 81 MG Tablet PO (09:04)
[2021-10-12] MEDS: Metoprolol Tartrate 25 MG Tablet 12.5 MG PO ×2 (09:04→21:11)
[2021-10-12] MEDS: TICAGRELOR 90 MG TABLET PO ×2 (09:04→21:11)
[2021-10-12] MEDS: Enoxaparin 40 MG/0.4 ML Syringe SC (09:04)
--- NOTE | 2021-10-12 09:35 | CASEMGMT ---
KEMAR REA Face to Face with patient for initial transition planning/care coordination assessment. KEMAR REA introduced self and role at [facility]. Patient lying in bed, alert and oriented. Patient willing to participate in assessment and is able to answer all questions appropriately. Care providers, pharmacy, and demographics verified. Patient wishes to discharge home, denies need for home health at this time. Patient states he has no further needs or concerns at this time. CM to follow for discharge planning needs that may arise. PCP: no PCP, list provided to patient Specialists: none Preferred Pharmacy: [facility] Insurance: [employer] Prescription Benefit: yes Living Will/HPOA: none LNOK: Brother Living Arrangements: Patient lives with brother in a 2 story home. Patient states he is independent at home and able to ambulate stairs. Transportation: self, brother DME/HHC: Patient states he has cane and grab bars at home. Patient denies previous HHC or SNF Patient states he smokes 1/3 PPD of cigarettes and drinks 12 pack of beer daily. KEMAR REA discussed addiction resources with patient, patient agreeable to speak with TAM. KEMAR REA called and updated TMA Nieves. Disposition Plan: Patient to discharge home with family support and follow-up plans in place. Grisel MARIE, RN, CM
--- NOTE | 2021-10-12 10:14 | CRPHASE1 ---
Patient Communication PHII Cardiac Rehab Discussed with Patient:: Yes Guide to Cardiac Rehab Given to Patient:: Yes Cardiac Rehab Facility Choice List Given to Patient:: Yes Choice Program [facility] CR PHII:: Communication Given to CR Choice Program Other:: Communication Given to CR Supervisor Agricultural Education:: Fredi Tracy Refer Phase II Cardiac Rehab:: Yes Sessions:: 36 sessions - 3 days/wk, 12 weeks Cardiac Rehabilitation Info Cardiac Rehabilitation Program Information: Cardiac Rehabilitation is important for patients like you who are recovering from a heart problem. Cardiac rehabilitation programs are recognized as integral to the continued care of the patient with coronary heart disease. The cardiac rehabilitation program is designed to optimize a patient's physical, psychological, and social functioning. Health home health care social worker work in cardiac rehabilitation programs and assist you with getting the treatments you need to get stronger and healthier - like exercise, healthy eating habits, and medications. Cardiac rehabilitation has been show to help people with heart problems live longer and have better life enjoyment than people who do not go to cardiac rehabilitation. Please contact the Cardiac Rehabilitation Program at [facility] at in two weeks if you have not heard from them.
--- NOTE | 2021-10-12 10:15 | CRPH1.INSTRU ---
General Education CAD and cardiac anatomy and function:: Patient communicates acknowledgment Explanation of diagnoses and procedures:: Patient communicates acknowledgment Sign/Symptoms of HI:: Patient communicates acknowledgment Antiplatelet therapy: Patient communicates acknowledgment Smoking Patient Nicotine/Smoking Risk Factors Are:: Cigarettes Recommendations Include:: Smoking cessation strategies/Smoking packet, Participation in a smoking cessation program Nicotine/Smoking Response Code:: Patient communicates acknowledgment Dyslipidemia Patient Dyslipidemia Risk Factors Are:: Total Cholesterol, Triglycerides, HDL, LDL Recommendations Include:: Lipid profile not available, Reviewed NCEP/ATP guidelines, Therapeutic Lifestyle Change dietary guidelines Dyslipidemia Response Code:: Patient communicates acknowledgment Overweight/Obesity Patient Overweight/Obesity Risk Factors Are:: BMI Normal [18-25 & < 65 years old] Overweight/Obesity:: Patient communicates acknowledgment Hypertension Recommendations Include:: Maintain BP <130/85, DASH dietary guidelines, Decrease/maintain normal body weight, Moderation of ETOH Hypertension:: Patient communicates acknowledgment Diabetes Patient Diabetes Risk Factors Are:: No documented hx of diabetes Metabolic Syndrome Recommendations Include:: Does not meet criteria Sedentary Patient Sedentary Risk Factors Are:: Lack of regular exercise Recommendations Include:: Aerobic exercise 5-7 times/week for 20-30 minutes continuously, Benefits of regular exercise, Discussed home walking program, Monitored Outpatient Cardiac Rehab Sedentary Response Code:: Patient communicates acknowledgment Stress Recommendations Include:: Identification of stressors, and assessment of coping skills, Stress management techniques Stress Response Code:: Patient communicates acknowledgment
--- NOTE | 2021-10-12 14:31 | CASEMGMT ---
TAM reviewed patient's chart and noted his alcohol and Meth use. RN ÁLVARO also spoke with patient. TAM met with patient. Introduced self and role at [facility]. SW provided patient with counseling/addiction resources, AA meeting list, as well as Stages of Change. Patient thanked TAM. Madelyn Nieves [employer] MARSHALOtto SIDHU
--- NOTE | 2021-10-12 15:30 | EKG12_ITS ---
Test Reason : STEMI Blood Pressure : / mmHG Vent. Rate : 079 BPM Atrial Rate : 079 BPM P-R Int : 156 ms QRS Dur : 104 ms QT Int : 438 ms P-R-T Axes : 063 -28 -51 degrees QTc Int : 502 ms Sinus rhythm with Premature atrial complexes Septal infarct , age undetermined , cannot be excluded ST & T wave abnormality, consider inferior ischemia ST & T wave abnormality, consider anterior ischemia Prolonged QT Abnormal ECG Confirmed by SURJIT MORALES, ELBA ([id number]), news editor JAIME WALKER ([id number]) on 10/13/2021 10:53:10 AM Referred By: Fredi Tracy Confirmed By:ELBA EDDY MD
--- NOTE | 2021-10-12 17:15 | EKG12_ITS ---
Test Reason : am ekg Blood Pressure : / mmHG Vent. Rate : 070 BPM Atrial Rate : 070 BPM P-R Int : 144 ms QRS Dur : 104 ms QT Int : 420 ms P-R-T Axes : 044 -19 134 degrees QTc Int : 453 ms Sinus rhythm with marked sinus arrhythmia Minimal voltage criteria for LVH, may be normal variant ( [place] product ) ST & Marked T wave abnormality, consider anterolateral ischemia Abnormal ECG Confirmed by SURJIT MORALES, ELBA ([id number]), fan mail editor JAIME WALKER ([id number]) on 10/14/2021 9:26:38 AM Referred By: Fredi Tracy Confirmed By:ELBA EDDY MD
[2021-10-12] MEDS: Atorvastatin Calcium 40 MG Tablet PO (21:12)
[2021-10-13 02:30] VITALS: BP 116/70; PULSE 60; RESP 14; TEMP 36.6; O2SAT 100
[2021-10-13 03:07] VITALS: PULSE 60
[2021-10-13 06:41] LABS: Anion Gap 2 (5-15); BUN 20 mg/dL (7-18); BUN/Creat Ratio 21.6 RATIO (10-20); Calcium,Total 8.6 mg/dL (8.5-10.1); Chloride 107 mmol/L (98-107); Creatinine, Serum 0.92 mg/dL (0.70-1.30); EST Glomerular Filtration Rate 89 mL/min (>60); Est Glom Filt Rate - Afr Amer 108 mL/min (>60); Estimated Creatinine Clearance 78.63 ml/min; Glucose 98 mg/dL (74-106); Potassium 4.2 mmol/L (3.5-5.1); Sodium Level 136 mmol/L (136-145)
[2021-10-13 07:00] VITALS: PULSE 57
--- NOTE | 2021-10-13 07:43 | PCM.DC.SUM ---
Providers Date of Admission: 10/11/21 Primary Care Physician: Astrid Primary Care Phys Reason For Visit: ACUTE STEMI Diagnosis Discharge Diagnosis (1) STEMI (ST elevation myocardial infarction): Status: Deleted Code(s): I21.3 - ST elevation (STEMI) myocardial infarction of unspecified site Plan Patient is a 61-year-old gentleman who presented with chest discomfort assessment was consistent with acute STEMI underwent emergency left heart catheterization with PCI and MORRO to large D1 branch 1. Acute non-STEMI (anterolateral STEMI) ? Underwent emergency left heart catheterization found to have a large D1 stenosis, 70 to 80% stenosis in the left circumflex and a small OM 2 branch that appears to be chronically occluded. Patient underwent PCI with MORRO to the diagonal branch lesion with plans for patient to undergo staged intervention of his left circumflex lesion intervention -10/12/2021 postprocedure day 1. Patient denies any chest discomfort -10/13/2021 with; patient seen stable for discharge. Case discussed with cardiology Dr. Tracy patient will be brought back for staged PCI of his circumflex lesion. 2. Essential hypertension ? Currently not on any medication 3. Bipolar disorder ? Per history 4. Chronic alcohol dependence ? Patient was counseled on cessation we will place on Ativan for DT precautions ? 10/12/2021 patient was placed on phenobarb taper 5. Polysubstance dependence including methamphetamine use ? Counseled on cessation 6. Tobacco dependence - Counseled on cessation, offered nicotine patch for tobacco cravings 7. DVT prophylaxis ? SC Lovenox Medications at Discharge Home Medications Vit B Complex & C No.19/FA/D3 01/20/14 aspirin 81 mg tablet,delayed release 81 mg PO DAILY@0800 #90 tabs 10/13/21 atorvastatin 40 mg tablet 40 mg PO QHS #90 tabs 10/13/21 lisinopril 2.5 mg tablet 2.5 mg PO DAILY #90 tabs 10/13/21 metoprolol succinate 25 mg tablet,extended release 24 hr (Toprol XL) 25 mg PO DAILY #90 tabs 10/13/21 ticagrelor 90 mg tablet (Brilinta) 90 mg PO BID #180 tabs 10/13/21 Hospital Course Summary of Care Provided Minutes Spent on Discharge: 35 Hospital Course: Patient is a 61-year-old gentleman who presented with chest discomfort assessment was consistent with acute STEMI underwent emergency left heart catheterization with PCI and MORRO to large D1 branch 1.? Acute non-STEMI (anterolateral STEMI) ? Underwent emergency left heart catheterization found to have a large D1 stenosis, 70 to 80% stenosis in the left circumflex and a small OM 2 branch that appears to be chronically occluded.? Patient underwent PCI with MORRO to the diagonal branch lesion with plans for patient to undergo staged intervention of his left circumflex lesion intervention -10/12/2021 postprocedure day 1.? Patient denies any chest discomfort 2.? Essential hypertension ? Currently not on any medication 3.? Bipolar disorder ? Per history 4.? Chronic alcohol dependence ? Patient was counseled on cessation we will place on Ativan for DT precautions ? 10/12/2021 patient was placed on phenobarb taper 5.? Polysubstance dependence including methamphetamine use ? Counseled on cessation 6.? Tobacco dependence - Counseled on cessation, offered nicotine patch for tobacco cravings 7.? DVT prophylaxis ? SC Lovenox Physical Exam Narrative GENERAL: cooperative HEENT: Atraumatic; EYES; Anicteric, Normal Conjunctiva NECK; supple, normal thyroid, RESPIRATORY: Diminished to auscultation CARDIOVASCULAR: Regular S1 S2, GI: soft, normoactive bowel sounds, : No Renal angle tenderness; EXTREMITIES: No edema, no clubbing, MUSCULOSKELETAL: no muscle wasting NEURO: Awake; no lateralizing signs. SKIN: No Rash PSYCH; Flat affect Weight / BMI Weight Weight: 65.6 kg Body Mass Index (BMI) 20.8 ABG / Lab / Microbiology Data Result Diagrams: 10/12/21 05:11 10/13/21 06:04 Laboratory: Laboratory Results - last 24 hr 10/13/21 06:04: Sodium 136, Potassium 4.2, Chloride 107, Carbon Dioxide 27.0, Anion Gap 2 L, BUN 20 H, Creatinine 0.92, Estim Creat Clear Calc 78.63, Est GFR (MDRD) Af Amer 108, Est GFR (MDRD) Non-Af 89, BUN/Creatinine Ratio 21.6 H, Glucose 98, Calcium 8.6 D/C Instructions Discharge Diet: Low fat / Low cholesterol Discharge Activity: Return to Normal Activity Call your doctor if you observe: Fever of 101 or Higher, Shortness of breath, Fainting spells and Chest pain Meaningful Use Info Meaningful Use Diagnoses (Choose all that apply): AMI AMI/Post PCI/Angioplasty Aspirin given w/in 24hrs of arrival?: Yes ASA at discharge?: Yes Antiplatelet Therapy at Discharge:: Yes Statins at discharge?: Yes Beau/ARB at discharge?: Yes Beta Zen at discharge?: Yes Done w/ Acute AR measure.: Yes Documented LVEF (%): 35 Discharge Plan Admission Admit Date/Time: 10/11/21 17:05 Attending Provider: Kyle Holder Primary Care Provider: Care Physician,No Primary Discharge Orders/Prescriptions Prescriptions: New atorvastatin 40 mg Tablet 40 mg PO QHS Qty: 90 0RF aspirin 81 mg Tablet,Delayed Release (Dr/Ec) 81 mg PO DAILY@0800 Qty: 90 0RF Brilinta 90 mg Tablet 90 mg PO BID Qty: 180 3RF metoprolol succinate [Toprol XL] 25 mg tablet extended release 24 hr 25 mg PO DAILY Qty: 90 0RF lisinopril 2.5 mg tablet 2.5 mg PO DAILY Qty: 90 0RF Continued Vit B Complex & C No.19/FA/D3 Discontinued hydrocodone-acetaminophen 1 TABLET tablet 1 - 2 tab PO Q4H PRN PRN (Reason: Pain) Qty: 20 0RF cephalexin 500 MG capsule 500 mg PO Q6 Qty: 40 0RF Referrals / Follow Up: Aba Sotomayor MD [STAFF PHYSICIAN] - Within 2 Weeks Care Physician,No Primary [Primary Care Provider] - Disposition Disposition (needs filled in before D/C Order can be placed): Home, Self Care Charges/Coding Visit Charges Inpatient E&M: 30928 Disch Hosp
[2021-10-13 09:00] VITALS: BP 107/77; PULSE 78; RESP 18; TEMP 36.6; O2SAT 98
--- NOTE | 2021-10-13 09:22 | PN.CARD_ITS ---
Subjective Subjective Patient is doing well. Denies any complaints. Objective Data Vital Signs: Vital Signs Temp Pulse Resp BP Pulse Ox O2 Del Method 97.9 F 57 L 14 116/70 100 Room Air 10/13/21 02:30 10/13/21 07:00 10/13/21 02:30 10/13/21 02:30 10/13/21 02:30 10/13/21 08:39 Oxygen Delivery Method Room Air Weight: 144 lb 9.972 oz Body Mass Index (BMI) 20.8 Intake & Output: Intake and Output for Last 24 Hours 10/11/21 10/12/21 10/13/21 23:59 23:59 23:59 Intake Total 1336 / 1336 720 / 720 Output Total 300 / 300 Balance 1336 / 1336 420 / 420 Lab / Micro Data Result Diagrams: 10/12/21 05:11 10/13/21 06:04 Labs: Laboratory Results - last 24 hr 10/13/21 06:04: Sodium 136, Potassium 4.2, Chloride 107, Carbon Dioxide 27.0, Anion Gap 2 L, BUN 20 H, Creatinine 0.92, Estim Creat Clear Calc 78.63, Est GFR (MDRD) Af Amer 108, Est GFR (MDRD) Non-Af 89, BUN/Creatinine Ratio 21.6 H, Glucose 98, Calcium 8.6 Cardiology Labs/Tests 10/13/21 06:04: Sodium 136, Potassium 4.2, Chloride 107, Carbon Dioxide 27.0, Anion Gap 2 L, BUN 20 H, Creatinine 0.92, Est GFR (MDRD) Af Amer 108, Est GFR (MDRD) Non-Af 89, BUN/Creatinine Ratio 21.6 H, Glucose 98, Calcium 8.6 Rhythm: EKG: ECHO: Stress Test: Cardiac Cath: PCI: CT Surgery: Holter monitor: EPS: PPM: CXR: Chest CT Scan: Radiography Diagnostic Testing: Radiology Impression Echocardiogram 10/11/21 17:11 Interpretation Summary The estimated ejection fraction is 35 %. There is evidence of diastolic dysfunction. hypokinesis of the lateral wall and apex Trivial mitral valve insufficiency. Trivial aortic valve insufficiency. Ordering Physician: Fredi Tracy Referring Physician: Fredi Tracy Performed By: Neli Arango RCS Physical Exam Const alert and oriented x3 HEENT normocephalic Eyes no scleral icterus Resp normal respiratory effort Cardio regular rate and regular rhythm Skin no rashes or lesions noted Psych mental status grossly normal Assessment & Plan Assessment/Plan (1) STEMI (ST elevation myocardial infarction): PLAN: treated with MORRO to D1. Recommend staged PCI of LCx. Will keep pt.on ASA, brilinta, BB, statin. EF is 35%. It appears out of proportion to patient's CAD. Patient's alcohol dependency could be playing a role as well. We will keep the patient on aspirin, Brilinta, statin. We will change the beta-isai to Toprol-XL 25 mg p.o. daily and add lisinopril 2.5 mg p.o. daily. It is reasonable to discharge the patient home today. He can follow-up with us as an outpatient. He will need EF assessment 3 months after PCI of the circumflex to see if he would benefit from an AICD. Charges/Coding Visit Charges Inpatient E&M: 36189 Subs Hosp L2
--- NOTE | 2021-10-13 09:31 | CASEMGMT ---
Pt to be sent home on Brilinta at discharge and med e-scribed to [facility] retail pharmacy. Call to Lisa in retail and she will call this RN ÁLVARO back if there is any co-pay for pt. Pt voices no further questions/concerns/needs. SStjuana REINOSO CM
[2021-10-13] MEDS: Famotidine 20 MG Tablet PO (09:40)
[2021-10-13] MEDS: TICAGRELOR 90 MG TABLET PO (09:40)
[2021-10-13] MEDS: Aspirin E.C. 81 MG Tablet PO (09:40)
[2021-10-13 09:41] VITALS: BP 107/77; PULSE 78
[2021-10-13] MEDS: Metoprolol Tartrate 25 MG Tablet 12.5 MG PO (09:41)
[2021-10-13] MEDS: Enoxaparin 40 MG/0.4 ML Syringe SC (09:41)
--- NOTE | 2021-10-13 09:54 | PHA.DC.MC ---
Pharmacy Service has performed discharge medication reconciliation and counseling for this patient. Patient would like medications delivered to his room. This [facility] called retail pharmacy to request delivery. 1. ASPIRIN 81MG PO DAILYCM 2. ATORVASTATIN 40MG PO QHS 3. LISINOPRIL 2.5MG PO DAILY 4. METOPROLOL SUCCINATE 25MG PO DAILY 5. TICAGRELOR 90MG PO BID The patient's discharge medication list was reviewed for discrepancies and discrepancies were resolved. Home Medications aspirin 81 mg tablet,delayed release 81 mg PO DAILY@0800 #90 tabs 10/13/21 atorvastatin 40 mg tablet 40 mg PO QHS #90 tabs 10/13/21 lisinopril 2.5 mg tablet 2.5 mg PO DAILY #90 tabs 10/13/21 metoprolol succinate 25 mg tablet,extended release 24 hr (Toprol XL) 25 mg PO DAILY #90 tabs 10/13/21 ticagrelor 90 mg tablet (Brilinta) 90 mg PO BID #180 tabs 10/13/21 The patient was counseled on the following discharge medications and changes in medications for homegoing were reviewed. The Reason for Use, instructions for use, and potential side effects were reviewed for all new medications. The patient's questions regarding all of their medications were answered. The patient was able to verbally demonstrate an understanding of their discharge medications.
== END 2021-10-13 11:14 | disposition home or self-care (01) | DRG 174 ==
LOC: ED 15:57 → ICU 19:18 → PCU 10-13 09:14
PROVIDERS: Admitting Provider Internal Medicine; Emergency Provider Student in an Organized Health Care Education/Training Program; Referring Provider Specialist; Visit Provider Internal Medicine
DX: I21.09 ST elevation (STEMI) myocardial infarction involving other coronary artery of anterior wall (principal); F10.20 Alcohol dependence, uncomplicated; F31.9 Bipolar disorder, unspecified; F19.20 Other psychoactive substance dependence, uncomplicated; I10 Essential (primary) hypertension; I25.10 Atherosclerotic heart disease of native coronary artery without angina pectoris; F17.210 Nicotine dependence, cigarettes, uncomplicated; K21.9 Gastro-esophageal reflux disease without esophagitis; F15.90 Other stimulant use, unspecified, uncomplicated; G89.29 Other chronic pain
CPT/HCPCS: 36415; 71045; 80048; 80053; 80076; 83735; 84100; 84443; 84484; 85025; 85027; 85610; 85730; 92941; 93005; 93306; 93454; 97802; 99251; 99283; C1874; J7030; A4216; C1725; C1769; C1887; C1894; C9606; G0463; J1327; Q9967

== ENCOUNTER 2021-11-11 12:06 | Observation (INO) | payer MEDICAID, SELFPAY ==
[2021-11-10 09:05] VITALS: BMI 22.0
[2021-11-11] VITALS (11 sets, daily range): BP systolic 116–134; BP diastolic 68–82; PULSE 48–80; RESP 18; TEMP 36.7; O2SAT 98–100; BMI 22.7
--- NOTE | 2021-11-11 12:25 | CL.I_ITS ---
Patient Name: BAN ANSARI Study Date: 11/11/2021 Performing: Adebayo Tracy MD Ht: 68 inches 173 cm : 1960 Wt: 145.7 lbs 66 kg Age: 61 Gender: male BSA: 1.79 PROCEDURE(S) PERFORMED IC12-(73673/C9600)MORRO W/WO PTCA, SINGLE CORONARY ARTERY IC02-(25001)PTCA, EACH ADD'L CORONARY ART, SAME MAJOR CLINICAL PROFILE AND CO-MORBIDITIES Heart Failure: None CAD Presentations: Other: Staged PCI of LCx stenosis CONCLUSIONS Successful PCI of LCx/ OM3 with MORRO in LCx and PTCA alone to ostial OM3 RECOMMENDATIONS DESCRIPTION OF PROCEDURE The patient arrived to the procedure lab. The risks and benefits of the procedure as well as a full d escription of our services here and current unavailability of surgical backup were fully explained to the patient and/or their significant other prior to the catheterization. The Timeout was completed, verifying the correct patient and procedure. The patient's procedural site was prepped and draped in the usual fashion. Local anesthetic was given subcutaneously to right radial region with Lidocaine 2% . Using a modified Seldinger technique, arterial access was obtained via the right radial artery, a 6 Fr sheath was inserted.. XB 3.0 Guide catheter was inserted and engaged into the LCA. BMW Guide wire was advanced to the 3 rd OM. 2.5 x 12 Emerge Balloon catheter was advanced across lesion in the third obtuse marginal, osti al PTCA balloon inflated at 6 atms for 18 secs. Angiogram performed post balloon dilatation. BMW Guid e wire was repositioned to the Circumflex 2.5 x 12 Emerge Balloon catheter was advanced across lesion in the circumflex, proximal. PTCA balloon inflated at 8 atms for 30 secs. Angiogram performed post b alloon dilatation. Orsiro 4.0 x 40 Drug Eluting stent was advanced across the lesion in the circumfle x, proximal. Angiogram performed pre stent deployment. Angiogram performed post stent deployment. Ors iro 4.0 x 18 Drug Eluting stent was advanced across the lesion in the circumflex, proximal. Angiogram performed post stent deployment. Runthrough Guide wire was advanced to the 3rd OM. 2.0 x 12 Emerge B alloon catheter was advanced across lesion in the third obtuse marginal, ostial PTCA balloon inflated at 10 atms for 15 secs. 4.0 x 20 Emerge Balloon catheter was advanced across lesion in the circumflex, proximal. PTCA balloon inflated at 8 atms for 20 secs. Circ PTCA balloon inflated at 12 atms for 20 secs. OM 3 PTCA balloon inflated at 8 atms for 8 secs. Circ PTCA balloon inflated a t 8 atms for 10 secs. CIrc The arterial sheath was pulled and a TR Band was applied for hemostasis. 16cc air inserted. INTERVENTION INFORMATION LESION SITE: 3rd OM (Ostial) Lesion Complexity: High/C, chronic total occlusion: No, lesion at bifurcation: Yes, thrombus present: No, lesion length: 6 mm, culprit lesion: Yes, Previously treated lesion: No Pre Stenosis: 90 % Pre intervention JENNIFER flow: 3 PROCEDURE: Balloon Angioplasty This lesion was treated with a provisional stenting approach. Kissing balloon inflation was performed with a 2.0 balloon in the OM3 and 4.0 baloon in the LCx after stent deployment. Post Stenosis: 80 % Post intervention JENNIFER flow: 3 Lesion Devices: Collins .014 BMW [place] Straight 190cm Cardinal 6 Fr XB3.0 100cm Guide Catheter Alex Sci EMERGE MR 2.50x12 BALLOON Alex Sci EMERGE MR 2.00x12 BALLOON LESION SITE: Circumflex (Proximal) Lesion Complexity: High/C, chronic total occlusion: No, lesion at bifurcation: Yes, thrombus present: No, lesion length: 60 mm, culprit lesion: Yes, Previously treated lesion: No Pre Stenosis: 90 % Pre intervention JENNIFER flow: 3 PROCEDURE: Drug Eluting Stent with pre and post dilatation Post Stenosis: 0 % Post intervention JENNIFER flow: 3 Lesion Devices: Collins .014 BMW [place] Straight 190cm Cardinal 6 Fr XB3.0 100cm Guide Catheter Alex Sci EMERGE MR 2.50x12 BALLOON Biotronik Orsiro [place] MR MORRO 4.0x40 Biotronik Orsiro [place] MR MORRO 4.0x18 Alex Sci EMERGE MR 4.00x20 BALLOON Lesion Devices: Terumo .014 Runthrough Extra Floppy 180cm straight COMPLICATIONS No Complications PROCEDURE MEDICATIONS Fentanyl 50 mcg IV Versed 1 mg IV Oxygen: 2 L/min via nasal cannula Heparin given IA 11/11/2021 11:05:57 Heparin 2000 unit(s) IV 11/11/2021 11:11:39 Heparin 1000 unit(s) IV 11/11/2021 11:34:03 Verapamil 2.5mg, Ntg 100mcgs, 3000 units of Heparin given IA 11/11/2021 11:05:57 SUMMARY OF HEMODYNAMIC DATA Time AIR REST ECG 07:41:41 AO 110/68 (85) SA 11:09:03 Signed By Adebayo Tracy MD On 11/11/2021 12:25:08 Adebayo Tracy MD
--- NOTE | 2021-11-11 13:07 | CRPHASE1 ---
Patient Communication PHII Cardiac Rehab Discussed with Patient:: Yes Guide to Cardiac Rehab Given to Patient:: Yes Cardiac Rehab Facility Choice List Given to Patient:: Yes Choice Program [facility] CR PHII:: Communication Given to CR Local Company Hazmat Driver:: Fredi Tracy Refer Phase II Cardiac Rehab:: Yes Sessions:: 36 sessions - 3 days/wk, 12 weeks Cardiac Rehabilitation Info Cardiac Rehabilitation Program Information: Cardiac Rehabilitation is important for patients like you who are recovering from a heart problem. Cardiac rehabilitation programs are recognized as integral to the continued care of the patient with coronary heart disease. The cardiac rehabilitation program is designed to optimize a patient's physical, psychological, and social functioning. Health care team coordinator scheduler work in cardiac rehabilitation programs and assist you with getting the treatments you need to get stronger and healthier - like exercise, healthy eating habits, and medications. Cardiac rehabilitation has been show to help people with heart problems live longer and have better life enjoyment than people who do not go to cardiac rehabilitation. Please contact the Cardiac Rehabilitation Program at [facility] at in two weeks if you have not heard from them.
--- NOTE | 2021-11-11 13:08 | CRPH1.INSTRU ---
General Education CAD and cardiac anatomy and function:: Patient communicates acknowledgment Explanation of diagnoses and procedures:: Patient communicates acknowledgment Sign/Symptoms of NE:: Patient communicates acknowledgment Antiplatelet therapy: Patient communicates acknowledgment Smoking Patient Nicotine/Smoking Risk Factors Are:: Cigarettes Recommendations Include:: Smoking cessation strategies/Smoking packet, Participation in a smoking cessation program Nicotine/Smoking Response Code:: Patient communicates acknowledgment Dyslipidemia Patient Dyslipidemia Risk Factors Are:: Total Cholesterol, Triglycerides, HDL, LDL Recommendations Include:: Lipid profile not available, Reviewed NCEP/ATP guidelines, Therapeutic Lifestyle Change dietary guidelines Dyslipidemia Response Code:: Patient communicates acknowledgment Overweight/Obesity Patient Overweight/Obesity Risk Factors Are:: BMI Normal [18-25 & < 65 years old] Hypertension Recommendations Include:: Maintain BP <130/85, DASH dietary guidelines, Decrease/maintain normal body weight, Moderation of ETOH Hypertension:: Patient communicates acknowledgment Diabetes Patient Diabetes Risk Factors Are:: No documented hx of diabetes Sedentary Patient Sedentary Risk Factors Are:: Lack of regular exercise Recommendations Include:: Aerobic exercise 5-7 times/week for 20-30 minutes continuously, Benefits of regular exercise, Discussed home walking program, Monitored Outpatient Cardiac Rehab Sedentary Response Code:: Patient communicates acknowledgment Stress Recommendations Include:: Identification of stressors, and assessment of coping skills, Stress management techniques Stress Response Code:: Patient communicates acknowledgment
[2021-11-11] MEDS: 0.9% Normal Saline 1,000 ML 60 ML IV (13:31)
[2021-11-11] MEDS: TICAGRELOR 90 MG TABLET PO (20:46)
[2021-11-11] MEDS: Atorvastatin Calcium 40 MG Tablet PO (20:46)
[2021-11-12] VITALS (8 sets, daily range): BP systolic 106–125; BP diastolic 59–73; PULSE 52–70; RESP 14–18; TEMP 36.6; O2SAT 92–96
[2021-11-12 06:52] LABS: Hematocrit 45.7 % (40-54); Hemoglobin 15.2 g/dL (13.0-16.5); Mean Corp Hgb Conc 33.3 g/dL (32-36); Mean Corpuscular Hgb 31.2 pg (27.0-32.0); Mean Corpuscular Volume 93.8 fL (80-94); Mean Platelet Vol. 9.4 fl (6.2-12.0); Platelet Count 423 K/mm3 (150-450); RBC Distribution Width CV 12.5 % (11.6-14.6); RBC Distribution Width SD 43.3 fl (35.1-43.9); Red Blood Count 4.87 M/mm3 (4.6-6.2); White Blood Count 10.7 K/mm3 (4.4-11.0)
[2021-11-12 07:23] LABS: ALB/GLOB Ratio 0.9 RATIO (0.9-2.4); AST(SGOT) 24 U/L (15-37); Alanine Aminotransfer ALT/SGPT 33 U/L (16-61); Albumin, Serum 3.1 g/dL (3.2-5.0); Alkaline Phosphatase 73 U/L (45-117); Anion Gap 4 (5-15); BUN 14 mg/dL (7-18); BUN/Creat Ratio 15.9 RATIO (10-20); Calcium,Total 8.5 mg/dL (8.5-10.1); Chloride 106 mmol/L (98-107); Creatinine, Serum 0.88 mg/dL (0.70-1.30); EST Glomerular Filtration Rate 94 mL/min (>60); Est Glom Filt Rate - Afr Amer 114 mL/min (>60); Estimated Creatinine Clearance 84.08 ml/min; Globulin 3.4 g/dL (2.2-4.2); Glucose 104 mg/dL (74-106); Potassium 4.2 mmol/L (3.5-5.1); Protein, Total 6.5 g/dL (6.4-8.2); Sodium Level 137 mmol/L (136-145)
[2021-11-12] MEDS: TICAGRELOR 90 MG TABLET PO (09:08)
[2021-11-12] MEDS: Aspirin E.C. 81 MG Tablet PO (09:08)
--- NOTE | 2021-11-12 10:00 | EKG12_ITS ---
Test Reason : AM EKG Blood Pressure : / mmHG Vent. Rate : 052 BPM Atrial Rate : 052 BPM P-R Int : 146 ms QRS Dur : 106 ms QT Int : 470 ms P-R-T Axes : 046 -26 -32 degrees QTc Int : 437 ms Sinus bradycardia Minimal voltage criteria for LVH, may be normal variant ( Sokolow-Steele ) T wave abnormality, consider anterior ischemia Abnormal ECG Confirmed by SURJIT MORALES, ELBA ([id number]), deputy editor in chief JAIME WALKER ([id number]) on 11/13/2021 7:32:30 AM Referred By: Fredi Tracy Confirmed By:ELBA EDDY MD
--- NOTE | 2021-11-12 10:16 | PCM.DC ---
Discharge Instructions Diet Discharge Diet: Low fat / Low cholesterol Activity Discharge Activity: - (Do not like anything greater than 10 lbs for 3 days. You need to be on your Brilinta for one year prior to stopping) Dressing / Incision Call your doctor if your incision/area has: Continuous Slow Oozing, Increased Pain/ Swelling, Increased Redness and Swelling at the incision site Call your doctor if you observe: Fever of 101 or Higher, Shortness of breath, Chest pain and Uncontrolled pain Remove Dressing in: 1 day Follow Up Care Please Follow Up With: Nakul Voss RESIDENT PROGRAM SPECIALIST, RESIDENT PROGRAM SPECIALIST-C When: 11/26/21 1330 Test Results: Test results from this visit will be discussed in further detail at your follow-up appointment, if applicable. Discharge Plan Admission Admit Date/Time: 11/11/21 12:06 Primary Reason for Your Visit: stagged PCI Attending Provider: Fredi Tracy Primary Care Provider: Care Physician,Astrid Primary Discharge Orders/Prescriptions Prescriptions: Continued Brilinta 90 mg Tablet 90 mg PO BID Qty: 180 3RF atorvastatin 40 mg Tablet 40 mg PO QHS Qty: 90 3RF aspirin 81 mg Tablet,Delayed Release (Dr/Ec) 81 mg PO DAILY@0800 Qty: 90 3RF metoprolol succinate [Toprol XL] 25 mg tablet extended release 24 hr 25 mg PO DAILY Qty: 90 3RF lisinopril 2.5 mg tablet 2.5 mg PO DAILY Qty: 90 3RF Referrals / Follow Up: Care Physician,No Primary [Primary Care Provider] - Disposition Disposition (needs filled in before D/C Order can be placed): Home, Self Care
== END 2021-11-12 10:27 | disposition home or self-care (01) ==
LOC: PCU 14:29
PROVIDERS: Admitting Provider Specialist; Referring Provider Specialist; Visit Provider Specialist
DX: I25.10 Atherosclerotic heart disease of native coronary artery without angina pectoris (principal); K21.9 Gastro-esophageal reflux disease without esophagitis; I10 Essential (primary) hypertension; F17.210 Nicotine dependence, cigarettes, uncomplicated; I25.2 Old myocardial infarction; Z79.899 Other long term (current) drug therapy; Z79.82 Long term (current) use of aspirin
CPT/HCPCS: C1725 ×3; C1769 ×4; C1887; C1894; Q9967; 80053; 85027; 92921; 92928; 93005; 99152; 99153; 99218; C1874; J7030; J7040; C9600; G0378

== ENCOUNTER 2023-01-17 09:55 | Emergency (ER) | payer MEDICAID, SELFPAY ==
[2023-01-17 09:56] VITALS: BP 139/87; PULSE 95; RESP 22; TEMP 35.8; O2SAT 97
--- NOTE | 2023-01-17 10:24 | EKG12_ITS ---
Test Reason : CP Blood Pressure : / mmHG Vent. Rate : 081 BPM Atrial Rate : 081 BPM P-R Int : 170 ms QRS Dur : 174 ms QT Int : 438 ms P-R-T Axes : 049 -42 129 degrees QTc Int : 508 ms Normal sinus rhythm Possible Left atrial enlargement Left axis deviation Left bundle branch block Abnormal ECG is now Present Confirmed by JORGE A MORALES, TERA ([id number]), assistant production editor DANIELE MEEK ([id number]) on 01/19/2023 1:56:55 PM Referred By: FAIZAN Confirmed By:TERA JULES MD
[2023-01-17] MEDS: Ipratropium/Albuterol Sulfate 3 ML AMPUL.NEB INHALATION (10:39)
[2023-01-17 10:40] LABS: Absolute Lymphocyte Count 1.86 X10^3/uL (0.83-4.51); Absolute Neutrophil Count 9.6 X10^3/uL (2.0-7.7); Basophil# 0.08 X10^3/uL; Basophil% 0.6 % (0-1); Eosinophil# 0.16 X10^3/uL; Eosinophils% 1.3 % (0-5); Hematocrit 47.2 % (40-54); Hemoglobin 15.2 g/dL (13.0-16.5); Lymphocyte # 1.86 X10^3/ul (0.83-4.51); Lymphocyte % 14.7 % (19-41); Mean Corp Hgb Conc 32.2 g/dL (32-36); Mean Corpuscular Volume 96.1 fL (80-94); Mean Platelet Vol. 9.8 fl (6.2-12.0); Monocyte# 0.86 X10^3/uL; Monocyte% 6.8 % (0-10); NRBC Flagged by Analyzer 0 % (0-5); Neutrophil # 9.59 X10^3/uL (2.7-7.7); Neutrophil % 75.9 % (47-70); Platelet Count 413 K/mm3 (150-450); RBC Distribution Width CV 12.8 % (11.6-14.6); RBC Distribution Width SD 45.6 fl (35.1-43.9); Red Blood Count 4.91 M/mm3 (4.6-6.2); White Blood Count 12.6 K/mm3 (4.4-11.0)
--- NOTE | 2023-01-17 10:43 | ED.VIS.DYS ---
HPI History of Present Illness Chief Complaint: Shortness of Breath Informant: patient Onset/Context/Timing Onset: Yesterday Context: gradual Timing: Continuous Quality: Positive for Dyspnea on exertion Worsened by: - (Movement) Relieved by: Nothing Associated Symptoms cough and yellow sputum; Negative for rhinorrhea, post nasal drip, ear pain, fever, sore throat, chills, clear sputum, white sputum or green sputum Chest Pain: Positive for Continuous and Dull Narrative Narrative: Patient presents with shortness of breath and chest discomfort that began yesterday. Patient states it came on gradually. Patient states it has been constant. Patient describes it as an abnormal sensation in his lower chest and upper abdomen. Patient states it is worse with certain movements. Patient midst to a cough with some yellow sputum. Patient denies any fevers or chills. Patient denies any nausea or vomiting. Patient denies any diaphoresis. Patient denies any PE risk factors. [facility] Medical History Alcohol abuse Atherosclerotic heart disease of [place] coronary artery without angina pectoris Bipolar disorder Chronic alcohol dependence, continuous Chronic pain Essential hypertension GERD (gastroesophageal reflux disease) History of ST elevation myocardial infarction (STEMI) (10/11/21) Polysubstance dependence Substance abuse Tobacco abuse Home Medications ticagrelor 90 mg tablet (Brilinta) 90 mg PO BID #180 tabs 10/13/21 [Rx Last Taken Unknown] lisinopril 5 mg tablet 5 mg PO DAILY #90 tabs 11/26/21 [Rx Last Taken Unknown] metoprolol succinate 25 mg tablet,extended release 24 hr (Toprol XL) 25 mg PO DAILY #90 tabs 12/28/21 [Rx Last Taken Unknown] atorvastatin 40 mg tablet 40 mg PO QHS #90 tabs 01/19/22 [Rx Last Taken Unknown] aspirin 81 mg tablet,delayed release 81 mg PO DAILY@0800 #90 tabs 04/06/22 [Rx Last Taken Unknown] Allergy/AdvReac Type Severity Reaction Status Date / Time No Known Allergies Allergy Verified 11/26/21 13:23 Family History Brother Pancreatic cancer Surgical History History of appendectomy History of coronary artery stent placement (11/11/21) Social History Smoking Status: Current every day smoker tobacco type: cigarettes alcohol intake: current alcohol intake frequency: a few times a week Alcohol type: beer substance use type: former substance user Date of last use: 10/11/21 and methamphetamine caffeine: No ROS ROS ED Constitutional Constitutional ED: Denies chills or fever(s) Eyes Eyes: Denies blurry vision or change in vision ENT ENT ED: Denies rhinorrhea or sore throat Cardiovascular Cardiovascular: Reports chest pain; Denies palpitations Respiratory/Chest Respiratory/Chest: Reports cough and dyspnea Gastrointestinal Gastrointestinal: Denies nausea or vomiting Genitourinary Genitourinary ED: Denies dysuria or hematuria Musculoskeletal Musculoskeletal: Reports back pain; Denies neck pain Integumentary Denies abscess or rash Neurologic Neurologic: Denies headache(s) or weakness Allergic/Immunologic Allergic/Immunologic ED: Denies mouth swelling or urticaria EXAM Physical Exam Const Vital Signs: 01/17/23 09:56 01/17/23 10:44 01/17/23 10:44 Temperature 96.4 F L Temperature Source Temporal Pulse Rate 95 89 Respiratory Rate 22 H 18 Respiratory Effort Respiratory Pattern Blood Pressure 139/87 H Blood Pressure Mean 104 Pulse Ox 97 Oxygen Delivery Method Room Air Room Air 01/17/23 10:44 01/17/23 12:22 01/17/23 12:31 Temperature Temperature Source Pulse Rate 75 92 Respiratory Rate Respiratory Effort Short of Breath Respiratory Pattern Tachypnea Blood Pressure 117/76 Blood Pressure Mean Pulse Ox Oxygen Delivery Method 01/17/23 13:21 Temperature Temperature Source Pulse Rate 85 Respiratory Rate 18 Respiratory Effort Respiratory Pattern Blood Pressure 108/83 H Blood Pressure Mean 91 Pulse Ox 93 Oxygen Delivery Method Room Air Positive well nourished and well developed General Appearance ED: well developed and NAD HEENT Reports moist mucous membranes Neck supple, no meningeal signs and no JVD Resp normal respiratory effort Auscultation: wheezes Cardio regular rate and regular rhythm GI non-tender and non-distended Palpation: soft Neuro oriented x3, CN's II-XII intact bilaterally and no sensory deficits noted Harvey Coma Scale: document GCS findings Spontaneous Obeys Commands Oriented 15 Sensorium / Orientation: alert Speech: speech normal Motor Exam: strength 5/5 throughout Psych mental status grossly normal MDM MDM MDM Narrative Medical decision making narrative: Differential diagnosis includes cardiac dysrhythmia, cardiac ischemia, pneumonia, pneumothorax, COVID-19 infection, influenza infection, pulmonary embolism, and COPD exacerbation. EKG will be obtained to assess for cardiac dysrhythmia and cardiac ischemia. Chest x-ray will be obtained to assess for pneumonia and pneumothorax. Be obtained to assess for leukocytosis and anemia. Basic metabolic profile will be obtained to assess for electrolyte abnormality and renal function. High-sensitivity troponin will be obtained to assess for cardiac ischemia. 2-hour repeat high-sensitivity troponin will be obtained to assess for ongoing cardiac ischemia. D-dimer will be obtained to assess for pulmonary embolism. PT with INR and PTT will be obtained to assess for coagulopathy. COVID-19 rapid antigen will be obtained to assess for COVID-19 infection. Influenza A and influenza B antigens will be obtained to assess for influenza infection. Lab Data Attestation: I reviewed the patient's lab results. Lab results narrative: CBC was reviewed. There is a slight leukocytosis of 12.6. The remainder was within normal limits. Basic metabolic profile was reviewed and was within normal limits. D-dimer was reviewed and was 0.51 which is normal for the patient's age. PT with INR and PTT were reviewed and were within normal limits. High-sensitivity troponin was reviewed and was normal at 32. 2-hour repeat high-sensitivity troponin was reviewed and was normal at 30. COVID-19 rapid antigen was reviewed and was negative. Influenza A and influenza B antigens were reviewed and were negative. Labs: Laboratory Results - last 24 hr 01/17/23 01/17/23 10:31 12:30 WBC 12.6 H RBC 4.91 Hgb 15.2 Hct 47.2 MCV 96.1 H MCH 31.0 MCHC 32.2 RDW Std Deviation 45.6 H RDW Coeff of Reggie 12.8 Plt Count 413 MPV 9.8 Immature Gran % (Auto) 0.700 Neut % (Auto) 75.9 H Lymph % (Auto) 14.7 L [place] % (Auto) 6.8 Eos % (Auto) 1.3 Baso % (Auto) 0.6 Absolute Neuts (auto) 9.6 H Absolute Lymphs (auto) 1.86 Nucleated RBC % 0 PT 13.8 INR 1.1 APTT 29.9 D-Dimer Quant (PE/DVT) 0.51 H* Sodium 141 Potassium 4.2 Chloride 113 H Carbon Dioxide 26.0 Anion Gap 2 L BUN 15 Creatinine 1.01 Est GFR (MDRD) Af Amer 97 Est GFR (MDRD) Non-Af 80 BUN/Creatinine Ratio 14.9 Glucose 117 H Calcium 8.5 Troponin I High Sens 32 30 Radiography Chest X-Ray - ED: 1 View, Read by ED Physician, Read by Radiologist and - (Basilar atelectasis) Diagnostic Testing: Clinical Impression(s) from Imaging Studies Chest X-Ray 01/17/23 10:55 IMPRESSION: Stable cardiomegaly with patchy opacities at both bases representing atelectasis or early/developing pneumonia. Follow-up chest imaging to resolution recommended. Electronically Signed: Albin Guaman MD at 11:08 EDT , Portable 1 view chest x-ray was obtained. On my independent interpretation, lung miller show patchy opacities at both bases representing atelectasis or possible early pneumonia. There is cardiomegaly. Bony thorax is normal. Radiologist also interpreted the x-ray and agrees. EKG Initial EKG: Attestation: I personally reviewed and interpreted this EKG as follows: Interpretation: Sinus Rhythm (81), LBBB and Non-Specific ST Changes Comments: EKG was obtained. On my independent interpretation, shows a normal sinus rhythm with a rate of 81. LA interval was 170 ms. QRS interval was 174 ms. QTc interval was 508 ms. There is left axis deviation -42. There is a left bundle branch block pattern noted. There are nonspecific ST-T wave changes noted. Prior EKG tracings: available for review Prior: Changed (Compared to EKG dated 11/11/2021, the left bundle branch block pattern is new.) Treatment and Re-Evaluation :: Patient was given a DuoNeb aerosol here. Patient was given aspirin. Patient was feeling better on reevaluation. Patient was advised of his findings. Patient was instructed to follow-up with his primary care physician in in 5 to 7 days. Patient was instructed return if worse in any way. Patient understood and was agreeable with the plan. All questions were answered. Discharge Plan Triage Chief Complaint: Shortness of Breath ED Provider: Rico Rodriguez Dx/Rx/DC Orders Clinical Impression: Dyspnea, Tobacco abuse, Acute viral bronchitis Instructions: ED Bronchitis, No Antibiotic (Adult), ED Dyspnea Prescriptions: No Action lisinopril 5 mg tablet 5 mg PO DAILY Qty: 90 3RF Brilinta 90 mg Tablet 90 mg PO BID Qty: 180 3RF metoprolol succinate [Toprol XL] 25 mg tablet extended release 24 hr 25 mg PO DAILY Qty: 90 3RF atorvastatin 40 mg tablet 40 mg PO QHS Qty: 90 3RF aspirin 81 mg tablet,delayed release (DR/EC) 81 mg PO DAILY@0800 Qty: 90 3RF Primary Care Provider: Care Physician,No Primary Referrals: Care Physician,No Primary [Primary Care Provider] - Doctor,Your [Non-Staff] - 3-5 Days Disposition Disposition: Home, Self Care
[2023-01-17 10:44] VITALS: PULSE 89; RESP 18
[2023-01-17 10:50] LABS: International Normalized Ratio 1.1; Prothrombin Time (Protime)PT. 13.8 SECONDS (11.7-14.9)
[2023-01-17 10:51] LABS: Partial Thromboplast Time 29.9 Seconds (24.1-36.2)
--- NOTE | 2023-01-17 10:55 | RAD_ITS ---
STUDY: X-RAY CHEST REASON FOR EXAM: Male, 62 years old. Chest pain. TECHNIQUE: Single frontal view of the chest on 2 images. COMPARISON: October 11, 2021. FINDINGS: Stable cardiomegaly with aortic tortuosity. Prominent central pulmonary arteries unchanged. Patchy opacities at both bases medially which may represent atelectasis or/developing pneumonia. Follow-up chest imaging to resolution recommended. No abnormality of the visualized soft tissue structures of the upper abdomen. RAD/Chest 1 View (Portable) IMPRESSION: Stable cardiomegaly with patchy opacities at both bases representing atelectasis or early/developing pneumonia. Follow-up chest imaging to resolution recommended. Electronically Signed: Albin Guaman MD at 11:08 EDT ,
[2023-01-17 11:00] LABS: Anion Gap 2 (5-15); BUN 15 mg/dL (7-18); BUN/Creat Ratio 14.9 RATIO (10-20); Calcium,Total 8.5 mg/dL (8.5-10.1); Chloride 113 mmol/L (98-107); Creatinine, Serum 1.01 mg/dL (0.70-1.30); EST Glomerular Filtration Rate 80 mL/min (>60); Est Glom Filt Rate - Afr Amer 97 mL/min (>60); Glucose 117 mg/dL (74-106); Potassium 4.2 mmol/L (3.5-5.1); Sodium Level 141 mmol/L (136-145); Troponin-I HS (w/2H Reflex) 32 pg/mL (3.0-78.0)
[2023-01-17] MEDS: Aspirin 81 MG TAB.CHEW 324 MG PO (11:06)
[2023-01-17 11:09] LABS: D-Dimer Quantitative (DVT/PE) 0.51 FEU/ug/m (0.27-0.49)
[2023-01-17 12:22] VITALS: PULSE 75
[2023-01-17 12:31] VITALS: BP 117/76; PULSE 92
[2023-01-17] MEDS: Nitroglycerin SL (ED/IMG/CATH) 0.4 MG TABLET SL (12:31)
[2023-01-17 12:36] LABS: Reflex Troponin-HS? (from REC) Y
[2023-01-17 13:05] LABS: Troponin-I HS 30 pg/mL (3.0-78.0)
[2023-01-17 13:21] VITALS: BP 108/83; PULSE 85; RESP 18; O2SAT 93
== END 2023-01-17 14:27 | disposition home or self-care (01) ==
PROVIDERS: Emergency Provider Emergency Medicine; Visit Provider Emergency Medicine
DX: J20.8 Acute bronchitis due to other specified organisms (principal); F31.9 Bipolar disorder, unspecified; R06.00 Dyspnea, unspecified; I25.10 Atherosclerotic heart disease of native coronary artery without angina pectoris; I10 Essential (primary) hypertension; F17.210 Nicotine dependence, cigarettes, uncomplicated; Z79.82 Long term (current) use of aspirin; Z79.02 Long term (current) use of antithrombotics/antiplatelets; Z95.5 Presence of coronary angioplasty implant and graft; Z11.52 Encounter for screening for COVID-19
CPT/HCPCS: 71045; 80048; 84484; 85025; 85379; 85610; 85730; 87428; 93005; 94640; 99284; A4216

== ENCOUNTER 2023-01-30 11:35 | Emergency (ER) | payer MEDICAID, SELFPAY ==
[2023-01-30 11:36] VITALS: BP 142/82; PULSE 113; RESP 16; TEMP 36.1; O2SAT 98; BMI 22.8
--- NOTE | 2023-01-30 11:53 | EKG12_ITS ---
Test Reason : Blood Pressure : / mmHG Vent. Rate : 106 BPM Atrial Rate : 106 BPM P-R Int : 128 ms QRS Dur : 166 ms QT Int : 400 ms P-R-T Axes : 058 -46 126 degrees QTc Int : 531 ms Sinus tachycardia Possible Left atrial enlargement Left axis deviation Left bundle branch block Abnormal ECG Confirmed by JORGE A MORALES, TERA ([id number]), editor magazine DANIELE MEEK ([id number]) on 02/01/2023 6:47:32 AM Referred By: Confirmed By:TERA JULES MD
--- NOTE | 2023-01-30 12:00 | ED.VIS.CHEST ---
HPI History of Present Illness Chief Complaint: Chest Pain Informant: patient Narrative Narrative: Patient was sent in here by preoperative clearance due to an abnormal EKG. Patient states he was told he was a ticking time bomb. Patient states he has no symptoms now. He does state that he gets short of breath at times. He will sometimes wake up short of breath he will sometimes get dyspnea on exertion. That is been going on for 2 to 4 months maybe longer. It does not seem to be getting progressively worse. Triage note says chest pain but he denies this to me. He does admit that he had a heart attack a year ago with 2 stents. He seems to have run out of his medicines in the last month or 2. He did not know what they were but I do have a list here. He states he just threw away his cigarettes today as he is a smoker. He was counseled to continue to quit as that is very important. He is essentially here asymptomatic at this time. His only symptoms have been consistent for months. [facility] Medical History Alcohol abuse Atherosclerotic heart disease of [place] coronary artery without angina pectoris Bipolar disorder Chronic alcohol dependence, continuous Chronic pain Essential hypertension GERD (gastroesophageal reflux disease) History of ST elevation myocardial infarction (STEMI) (10/11/21) Polysubstance dependence Substance abuse Tobacco abuse Home Medications ticagrelor 90 mg tablet (Brilinta) 90 mg PO BID #180 tabs 10/13/21 [Rx Last Taken Unknown] lisinopril 5 mg tablet 5 mg PO DAILY #90 tabs 11/26/21 [Rx Last Taken Unknown] metoprolol succinate 25 mg tablet,extended release 24 hr (Toprol XL) 25 mg PO DAILY #90 tabs 12/28/21 [Rx Last Taken Unknown] atorvastatin 40 mg tablet 40 mg PO QHS #90 tabs 01/19/22 [Rx Last Taken Unknown] aspirin 81 mg tablet,delayed release 81 mg PO DAILY@0800 #90 tabs 04/06/22 [Rx Last Taken Unknown] atorvastatin 40 mg tablet 40 mg PO DAILY #30 tabs 01/30/23 [Rx Last Taken Unknown] lisinopril 5 mg tablet 5 mg PO DAILY #30 tabs 01/30/23 [Rx Last Taken Unknown] metoprolol succinate 25 mg capsule sprinkle, ext. release 24 hr (Kapspargo Sprinkle) 25 mg PO DAILY #30 ea 01/30/23 [Rx Last Taken Unknown] ticagrelor 90 mg tablet (Brilinta) 90 mg PO BID #60 tabs 01/30/23 [Rx Last Taken Unknown] Allergy/AdvReac Type Severity Reaction Status Date / Time No Known Allergies Allergy Verified 01/30/23 12:19 Family History Brother Pancreatic cancer Surgical History History of appendectomy History of coronary artery stent placement (11/11/21) Social History Smoking Status: Current every day smoker tobacco type: cigarettes alcohol intake: current alcohol intake frequency: a few times a week Alcohol type: beer substance use type: former substance user Date of last use: 10/11/21 and methamphetamine caffeine: No ROS ROS ED ROS Narrative A complete review of systems was performed and is negative except as documented in the history of present illness. Some specific details below. Constitutional: No recent fevers or chills. EYE: No discharge, visual complaints, or pain. ENT: No difficulty swallowing. No swelling. No pain. No reflux symptoms. CV: No actual chest pain. No palpitations. Respiratory: See history of present illness. GI: No abdominal pain. No nausea vomiting diarrhea. No blood in stool. : No frequency dysuria or hematuria. Musculoskeletal: No recent trauma. No pains. No swelling. Skin: No rash. Nondiaphoretic. Neuro: No weakness or numbness. Endocrine: No polyuria or polydipsia. EXAM Physical Exam Narrative Exam Narrative: CONSTITUTIONAL: Patient is nontoxic in appearance. The patient looks comfortable. Work of breathing looks normal. Patient is thin but not cachectic. HEENT: No notable trauma. Mucous membranes moist. No sinus tenderness. No indication of pain with swallowing. EYES: No conjunctival injection. No proptosis. NECK:No JVD. No stridor. CARDIOVASCULAR: Regular rate. Regular rhythm. No notable murmur. No JVD. No muffled tones. Peripheral pulses are normal x4. For me his heart rates about 100. RESPIRATORY: No respiratory distress. Breathing is unlabored. No wheezes. No rhonchi. No rales. No pain with a deep breath. No chest wall tenderness. Overall his pulmonary exam is very normal. GASTROINTESTINAL: Not distended. Bowel sounds are normal. No tenderness. No guarding. No rebound. No palpable mass. No bruit is heard. GENITOURINARY: No tenderness over the bladder. No CVA tenderness. MUSCULOSKELETAL: Atraumatic. No peripheral edema. No cord. No tenderness along the deep venous system. No asymmetry. No distended veins. He has no history of DVT. He denies travel surgery or immobilization personal or family history. NEUROLOGICAL: Patient is alert and appropriate. No focal deficit noted. SKIN: No noted rashes. No diaphoresis. PSYCHIATRIC: Patient is calm. Mood is appropriate. Const Vital Signs: 01/30/23 11:36 01/30/23 12:17 01/30/23 12:17 Temperature 97 F L Temperature Source Temporal Pulse Rate 113 H 101 H Respiratory Rate 16 16 Blood Pressure 142/82 H 126/81 H Blood Pressure Mean 102 96 Pulse Ox 98 97 Oxygen Delivery Method Room Air Room Air Room Air 01/30/23 13:37 Temperature Temperature Source Pulse Rate 86 Respiratory Rate 18 Blood Pressure 124/90 H Blood Pressure Mean 101 Pulse Ox 98 Oxygen Delivery Method Room Air MDM MDM MDM Narrative Medical decision making narrative: My independent interpretation of the patient's to image single view chest x-ray shows some increased markings in the right base to middle lobe. Final reading shows that these are chronic and there is no acute change. Patient CBC is overall normal. Patient's electrolytes are normal other than minimal elevation of chloride. His troponin is negative at 26 and lower than his last ones. Patient is asymptomatic. He was sent in for an abnormal EKG which is the same as we have prior. They did not have access to old EKGs. I will write for his medicines as he is out of these. I have encouraged him to follow-up with his physician and to continue the process of smoking cessation. Lab Data Attestation: I reviewed the patient's lab results. Labs: Laboratory Results - last 24 hr 01/30/23 12:14 WBC 9.1 RBC 4.31 L Hgb 13.5 Hct 40.7 MCV 94.4 H MCH 31.3 MCHC 33.2 RDW Std Deviation 45.3 H RDW Coeff of Reggie 13.0 Plt Count 316 MPV 10.0 Immature Gran % (Auto) 0.400 Neut % (Auto) 72.9 H Lymph % (Auto) 17.5 L [place] % (Auto) 6.3 Eos % (Auto) 2.2 Baso % (Auto) 0.7 Absolute Neuts (auto) 6.6 Absolute Lymphs (auto) 1.59 Nucleated RBC % 0 Sodium 140 Potassium 3.8 Chloride 111 H Carbon Dioxide 22.0 Anion Gap 7 BUN 20 H Creatinine 1.05 Estim Creat Clear Calc 69.95 Est GFR (MDRD) Af Amer 92 Est GFR (MDRD) Non-Af 76 BUN/Creatinine Ratio 19.0 Glucose 140 H Calcium 8.5 Troponin I High Sens 26 Radiography Diagnostic Testing: Clinical Impression(s) from Imaging Studies Chest X-Ray 01/30/23 12:15 IMPRESSION: No significant change. Electronically Signed: Remi Miguel MD at 12:39 EDT , EKG Initial EKG: Comments: My independent interpretation of the patient's EKG shows sinus rhythm with tachycardic rate at 106. He does have a left bundle branch block. He has diffuse ST and T wave changes consistent with that block. GA interval is normal. QRS duration and QTc are long. This EKG is very similar to 1 from of this month Discharge Plan Triage Chief Complaint: Chest Pain ED Provider: Brent Hall Dx/Rx/DC Orders Clinical Impression: Variable compliance with medication therapy, History of dyspnea, Left bundle branch block Instructions: ED Dyspnea Prescriptions: New atorvastatin 40 mg tablet 40 mg PO DAILY Qty: 30 0RF Brilinta 90 mg tablet 90 mg PO BID Qty: 60 0RF lisinopril 5 mg tablet 5 mg PO DAILY Qty: 30 0RF Kapspargo Sprinkle 25 mg capsule,sprinkle,ER 24hr 25 mg PO DAILY Qty: 30 0RF No Action lisinopril 5 mg tablet 5 mg PO DAILY Qty: 90 3RF Brilinta 90 mg Tablet 90 mg PO BID Qty: 180 3RF metoprolol succinate [Toprol XL] 25 mg tablet extended release 24 hr 25 mg PO DAILY Qty: 90 3RF atorvastatin 40 mg tablet 40 mg PO QHS Qty: 90 3RF aspirin 81 mg tablet,delayed release (DR/EC) 81 mg PO DAILY@0800 Qty: 90 3RF Primary Care Provider: Tiarra Roach Referrals: Care Physician,No Primary [Non-Staff] - Activity Restrictions/Additional Instructions: Follow-up with your primary physician as soon as possible. Disposition Disposition: Home, Self Care
--- NOTE | 2023-01-30 12:15 | RAD_ITS ---
INDICATION: chest pain EXAMINATION/TECHNIQUE: X-RAY - XR Chest 1 View COMPARISON: Prior study dated: 01/17/2023. FINDINGS: LINES/DEVICES: None. LUNGS: Slightly prominent interstitial markings worse in the right lower lung unchanged prior exam. MEDIASTINUM AND CARDIOVASCULAR STRUCTURES: There are cardiomediastinal silhouette. BONES AND SOFT TISSUES: No demonstrated acute osseous changes. RAD/Chest 1 View (Portable) IMPRESSION: No significant change. Electronically Signed: Remi Miguel MD at 12:39 EDT ,
[2023-01-30 12:17] VITALS: BP 126/81; PULSE 101; RESP 16; O2SAT 97
[2023-01-30 12:23] LABS: Absolute Lymphocyte Count 1.59 X10^3/uL (0.83-4.51); Absolute Neutrophil Count 6.6 X10^3/uL (2.0-7.7); Basophil# 0.06 X10^3/uL; Basophil% 0.7 % (0-1); Eosinophils% 2.2 % (0-5); Hematocrit 40.7 % (40-54); Hemoglobin 13.5 g/dL (13.0-16.5); Lymphocyte # 1.59 X10^3/ul (0.83-4.51); Lymphocyte % 17.5 % (19-41); Mean Corp Hgb Conc 33.2 g/dL (32-36); Mean Corpuscular Hgb 31.3 pg (27.0-32.0); Mean Corpuscular Volume 94.4 fL (80-94); Monocyte# 0.57 X10^3/uL; Monocyte% 6.3 % (0-10); NRBC Flagged by Analyzer 0 % (0-5); Neutrophil # 6.63 X10^3/uL (2.7-7.7); Neutrophil % 72.9 % (47-70); Platelet Count 316 K/mm3 (150-450); RBC Distribution Width SD 45.3 fl (35.1-43.9); Red Blood Count 4.31 M/mm3 (4.6-6.2); White Blood Count 9.1 K/mm3 (4.4-11.0)
[2023-01-30 12:44] LABS: Anion Gap 7 (5-15); BUN 20 mg/dL (7-18); Calcium,Total 8.5 mg/dL (8.5-10.1); Chloride 111 mmol/L (98-107); Creatinine, Serum 1.05 mg/dL (0.70-1.30); EST Glomerular Filtration Rate 76 mL/min (>60); Est Glom Filt Rate - Afr Amer 92 mL/min (>60); Estimated Creatinine Clearance 69.95 ml/min; Glucose 140 mg/dL (74-106); Potassium 3.8 mmol/L (3.5-5.1); Sodium Level 140 mmol/L (136-145); Troponin-I HS 26 pg/mL (3.0-78.0)
[2023-01-30 13:37] VITALS: BP 124/90; PULSE 86; RESP 18; O2SAT 98
[2023-01-30 14:23] VITALS: BP 138/78; PULSE 100; O2SAT 100
== END 2023-01-30 14:25 | disposition home or self-care (01) ==
PROVIDERS: Emergency Provider Emergency Medicine; PCP Nurse Practitioner Family; Visit Provider Emergency Medicine
DX: I44.7 Left bundle-branch block, unspecified (principal); I25.10 Atherosclerotic heart disease of native coronary artery without angina pectoris; R06.09 Other forms of dyspnea; I10 Essential (primary) hypertension; I25.2 Old myocardial infarction; F17.210 Nicotine dependence, cigarettes, uncomplicated; Z91.148 Patient's other noncompliance with medication regimen for other reason; Z95.5 Presence of coronary angioplasty implant and graft; Z79.02 Long term (current) use of antithrombotics/antiplatelets; Z79.82 Long term (current) use of aspirin; Z79.899 Other long term (current) drug therapy
CPT/HCPCS: 71045; 80048; 84484; 85025; 93005; 99284; A4216

== ENCOUNTER → 2023-02-22 | Outpatient (CLI) | payer MEDICAID, SELFPAY ==
--- NOTE | 2023-02-22 08:50 | STRESSREP_ITS ---
Stress Test Report Pharmacologic myocardial perfusion stress test. 63-year-old man with a history of cardiomyopathy Resting EKG demonstrates sinus rhythm with a rate of 82 bpm. Left bundle branch block pattern is noted. Resting blood pressure is 110/70 mmHg. 0.4 mg of regadenoson was infused per usual protocol followed by rapid intravenous saline flush injection. Continuous EKG monitoring was performed. The maximum heart rate was 99 bpm which was 62% of max impacted heart rate the maximum workload was 1 metabolic equivalent. At rest there were no ST or T wave changes noted to suggest ischemia and at peak infusion nonspecific ST changes were noted which did not meet the criteria for ischemia. No clinical angina is noted. The final blood pressure was 104/66 mmHg. Myocardial perfusion protocol. 12.0 mCi of technetium 99m sestamibi was injected at rest. 0.4 mg of regadenoson was infused per usual protocol. At peak infusion 36.0 mCi of guy hnetium 99m sestamibi was injected stress images were obtained stress and rest images were reconstructed and compared in the short axis vertical long and horizontal long axis. Gated images were also obtained. Perfusion SPECT analysis: Review of the stress images demonstrate normal uptake of tracer noted in all areas of the myocardium with marked reduction noted in the anterior septal and inferoseptal desai with a dilated cardiac silhouette size.. The resting images similar demonstrated normal uptake of tracer noted in all areas of the myocardium and a similar pattern noted above. The above is suggestive of a previous infarct in the anterior septal and inferoseptal region or a cardiomyopathy. No obvious ischemia is noted.. Gated SPECT analysis: The gated ejection fraction is 32%. Conclusion: Myocardial perfusion stress test with evidence of a dilated cardiomyopathy with previous anteroseptal infarct cannot be excluded. Reduced ejection fraction
== END | disposition home or self-care (01) ==
LOC: CVS 06:34
PROVIDERS: PCP Nurse Practitioner Family; Referring Provider Nurse Practitioner Family; Visit Provider Nurse Practitioner Family
DX: R06.09 Other forms of dyspnea (principal); I10 Essential (primary) hypertension; Z95.5 Presence of coronary angioplasty implant and graft
CPT/HCPCS: 78452; 93017; A9500; A4216; J2785

== ENCOUNTER → 2023-08-17 | Outpatient (CLI) | payer MEDICAID, SELFPAY ==
[2023-08-17 16:33] LABS: Absolute Neutrophil Count 4.7 X10^3/uL (2.0-7.7); Basophil# 0.06 X10^3/uL; Basophil% 0.7 % (0-1); Eosinophil# 0.21 X10^3/uL; Eosinophils% 2.6 % (0-5); Hematocrit 42.5 % (40-54); Hemoglobin 14.2 g/dL (13.0-16.5); Lymphocyte % 28.3 % (19-41); Mean Corp Hgb Conc 33.4 g/dL (32-36); Mean Corpuscular Hgb 31.7 pg (27.0-32.0); Mean Corpuscular Volume 94.9 fL (80-94); Mean Platelet Vol. 9.9 fl (6.2-12.0); Monocyte# 0.89 X10^3/uL; Monocyte% 10.9 % (0-10); NRBC Flagged by Analyzer 0 % (0-5); Neutrophil # 4.66 X10^3/uL (2.7-7.7); Neutrophil % 57.3 % (47-70); Platelet Count 366 K/mm3 (150-450); RBC Distribution Width SD 41.8 fl (35.1-43.9); Red Blood Count 4.48 M/mm3 (4.6-6.2); White Blood Count 8.1 K/mm3 (4.4-11.0)
[2023-08-17 17:16] LABS: Anion Gap 3 (5-15); BNP,B-Type NATRIURETIC PEPTIDE 339.6 pg/mL (0-100); BUN 16 mg/dL (7-18); BUN/Creat Ratio 20.3 RATIO (10-20); Calcium,Total 8.6 mg/dL (8.5-10.1); Chloride 111 mmol/L (98-107); Creatinine, Serum 0.79 mg/dL (0.70-1.30); EST Glomerular Filtration Rate 106 mL/min (>60); Est Glom Filt Rate - Afr Amer 129 mL/min (>60); Glucose 78 mg/dL (74-106); Potassium 3.6 mmol/L (3.5-5.1); Sodium Level 141 mmol/L (136-145); Thyroid Stim Hormone (TSH) 0.75 uIU/mL (0.358-3.74)
== END | disposition home or self-care (01) ==
LOC: LAB 15:36
PROVIDERS: PCP Nurse Practitioner Family; Visit Provider Nurse Practitioner Gerontology
DX: R00.2 Palpitations (principal); R42 Dizziness and giddiness; R06.00 Dyspnea, unspecified
CPT/HCPCS: 36415; 80048; 83880; 84443; 85025

== ENCOUNTER → 2023-09-01 | Outpatient (CLI) | payer MEDICAID, SELFPAY ==
[2023-09-01 15:47] LABS: Anion Gap 3 (5-15); BUN 13 mg/dL (7-18); BUN/Creat Ratio 13.9 RATIO (10-20); Calcium,Total 9.1 mg/dL (8.5-10.1); Chloride 110 mmol/L (98-107); Creatinine, Serum 0.93 mg/dL (0.70-1.30); EST Glomerular Filtration Rate 87 mL/min (>60); Est Glom Filt Rate - Afr Amer 106 mL/min (>60); Glucose 99 mg/dL (74-106); Potassium 3.7 mmol/L (3.5-5.1); Sodium Level 140 mmol/L (136-145)
== END | disposition home or self-care (01) ==
LOC: LAB 14:47
PROVIDERS: PCP Nurse Practitioner Family; Referring Provider Nurse Practitioner Gerontology; Visit Provider Nurse Practitioner Gerontology
DX: I25.5 Ischemic cardiomyopathy (principal)
CPT/HCPCS: 36415; 80048

== ENCOUNTER → 2023-09-26 | Outpatient (CLI) | payer MEDICAID, SELFPAY ==
--- NOTE | 2023-09-26 12:56 | ECHOD_ITS ---
Reason For Study: CHF Procedure This was a 2D Doppler, Color Flow transthoracic echocardiogram. Exam performed in department. Left Ventricle Normal LV size. Septal motion consistent with bundle branch block. The left ventricular ejection fraction is 25 %. There is moderate to severe global hypokinesis of the left ventricle. Right Ventricle Normal RV size. Normal systolic function. Atria The left atrium is mildly enlarged. Normal right atrium. Mitral Valve Bileaflet diffuse mitral valve thickening. Mild-Moderate (1-2+) eccentric mitral valve insufficiency. Tricuspid Valve Normal tricuspid valve. Aortic Valve Trisinus/trileaflet aortic valve. Pulmonic Valve Normal pulmonic valve. Great Vessels Normal aortic root. The pulmonary artery is normal size. Inferior vena cava collapse with sniff. Pericardium/Pleural No pericardial effusion. MMode/2D Measurements & Calculations LVIDd: 6.4 cm IVSd: 1.1 cm Ao root diam: 3.4 cm LVIDs: 5.4 cm LVPWd: 1.2 cm LA dimension: 4.2 cm RVDd: 3.7 cm FS: 16.2 % LAV(MOD-bp): 74.0 ml LVAd ap4: 44.9 cm2 SV(MOD-sp4): 40.9 ml LAV(MOD-bp) Indexed: 41.6 ml/m2 LVLd ap4: 9.3 cm LAV(MOD-sp2): 81.4 ml EDV(MOD-sp4): 177.4 ml LAV(MOD-sp4): 64.8 ml EDV(sp4-el): 184.9 ml LVAs ap4: 37.0 cm2 LVLs ap4: 8.4 cm ESV(MOD-sp4): 136.5 ml ESV(sp4-el): 138.0 ml EF(MOD-sp4): 23.0 % EF(sp4-el): 25.4 % SV(sp4-el): 46.9 ml LA A4 area: 21.4 cm2 RA A4 area: 13.5 cm2 TAPSE: 1.6 cm Time Measurements MV dec time: 0.23 sec Doppler Measurements & Calculations MV E max ramesh: 69.8 cm/sec Lat Peak E' Ramesh: 6.0 cm/sec Med Peak E' Ramesh: 5.0 cm/sec MV A max ramesh: 56.3 cm/sec E/E' lat: 11.7 E/E' med: 14.1 MV E/A: 1.2 MV V2 max: 82.1 cm/sec MV P1/2t max ramesh: 82.1 cm/sec Ao V2 max: 137.4 cm/sec MV max P.7 mmHg MV P1/2t: 78.2 msec Ao max P.6 mmHg MV V2 mean: 45.1 cm/sec MV dec slope: 307.7 cm/sec2 Ao V2 mean: 97.2 cm/sec MV mean P.99 mmHg Ao mean P.3 mmHg MV V2 VTI: 24.1 cm MVA(P1/2t): 2.8 cm2 Ao V2 VTI: 26.6 cm AV (velocity ratio): 0.65 LV V1 max: 92.8 cm/sec MR max ramesh: 549.5 cm/sec PA V2 max: 89.8 cm/sec LV V1 max P.4 mmHg MR max P.8 mmHg PA max PG (full): 1.5 mmHg LV V1 mean P.0 mmHg MR mean ramesh: 380.9 cm/sec PA V2 mean: 63.7 cm/sec LV V1 mean: 67.1 cm/sec MR mean P.2 mmHg PA mean PG (full): 0.81 mmHg LV V1 VTI: 17.4 cm MR VTI: 194.4 cm ECHO/Echo Complete Interpretation Summary Normal LV size. There is moderate to severe global hypokinesis of the left ventricle. The left ventricular ejection fraction is 25 %. Septal motion consistent with bundle branch block. Bileaflet diffuse mitral valve thickening. Mild-Moderate (1-2+) eccentric mitral valve insufficiency. Ordering Physician: Holly Dela Cruz Referring Physician: Holly Dela Cruz Performed By: Neno Lyons RCS
== END | disposition home or self-care (01) ==
LOC: CVS 12:55
PROVIDERS: PCP Nurse Practitioner Family; Referring Provider Nurse Practitioner Gerontology; Visit Provider Nurse Practitioner Gerontology
DX: I25.5 Ischemic cardiomyopathy (principal); R06.09 Other forms of dyspnea; Z95.5 Presence of coronary angioplasty implant and graft
CPT/HCPCS: 93306

== ENCOUNTER → 2023-10-26 | Outpatient (CLI) | payer MEDICAID, SELFPAY ==
--- NOTE | 2023-10-26 08:58 | CDU_ITS ---
Reason For Study: dizziness Rt. Velocities/BP Lt. Velocities/BP Prox CCA 105.8/19.0 cm/sec. Prox CCA 100.3/24.5 cm/sec. Mid CCA 106.9/23.4 cm/sec. Mid CCA 108.0/30.0 cm/sec. Dist CCA 101.4/25.6 cm/sec. Dist CCA 80.6/22.3 cm/sec. Prox ICA 112.0/24.3 cm/sec. Prox ICA 79.5/24.5 cm/sec. Mid ICA 85.0/20.1 cm/sec. Mid ICA 82.8/26.7 cm/sec. Dist ICA 67.4/22.3 cm/sec. Dist ICA 89.4/35.5 cm/sec. Rt. ICA/CCA = 1.0. Lt. ICA/CCA = .8. Prox ECA 77.3/5.8 cm/sec. Prox ECA 65.2/9.1 cm/sec. Rt. Vert. 47.4/13.3 cm/sec. Lt. Vert. 26.5/5.2 cm/sec. Right Extracranial There is intimal thickening but no significant atherosclerotic plaque noted in the right common carotid artery. There is intimal thickening but no significant atherosclerotic plaque noted in the right internal carotid artery. There is intimal thickening but no significant atherosclerotic plaque noted in the right external carotid artery. Antegrade flow is noted in the right vertebral artery. Left Extracranial There is intimal thickening but no significant atherosclerotic plaque noted in the left common carotid artery. There is homogeneous, smooth atherosclerotic plaque noted in the left internal carotid artery. There is homogeneous, smooth atherosclerotic plaque noted in the left external carotid artery. Antegrade flow is noted in the left vertebral artery. Procedure Carotid Duplex [id number]. This is a Carotid Duplex examination using B-mode, color flow and specral Doppler. The exam was diagnostic. Exam performed in department. VL/Carotid Duplex Ultrasound Interpretation Summary Normal right extracranial internal carotid. Mild (<50%) stenosis left extracranial internal carotid. Patent and antegrade vertebrals bilaterally. Ordering Physician: Holly Dela Cruz Referring Physician: Holly Dela Cruz Performed By: Tyrel Daly RVT
== END | disposition home or self-care (01) ==
LOC: PSN 08:56
PROVIDERS: PCP Nurse Practitioner Family; Referring Provider Nurse Practitioner Gerontology; Visit Provider Nurse Practitioner Gerontology
DX: R42 Dizziness and giddiness (principal)
CPT/HCPCS: 93225; 93226; 93880

== ENCOUNTER → 2023-11-14 | Outpatient (CLI) | payer MEDICAID, SELFPAY | END | disposition home or self-care (01) | LOC: PSN 12:22 | PROVIDERS: PCP Nurse Practitioner Family; Referring Provider Nurse Practitioner Gerontology; Visit Provider Nurse Practitioner Gerontology | DX: R42 Dizziness and giddiness (principal) | CPT/HCPCS: 93225; 93226 ==

== ENCOUNTER → 2023-11-16 | Outpatient (CLI) | payer MEDICAID, SELFPAY ==
[2023-11-16 12:19] LABS: Absolute Neutrophil Count 5.5 X10^3/uL (2.0-7.7); Basophil# 0.07 X10^3/uL; Basophil% 0.8 % (0-1); Eosinophil# 0.14 X10^3/uL; Eosinophils% 1.7 % (0-5); Hematocrit 40.7 % (40-54); Hemoglobin 13.8 g/dL (13.0-16.5); Lymphocyte % 21.4 % (19-41); Mean Corp Hgb Conc 33.9 g/dL (32-36); Mean Corpuscular Hgb 31.6 pg (27.0-32.0); Mean Corpuscular Volume 93.1 fL (80-94); Mean Platelet Vol. 9.6 fl (6.2-12.0); Monocyte# 0.85 X10^3/uL; Monocyte% 10.1 % (0-10); NRBC Flagged by Analyzer 0 % (0-5); Neutrophil # 5.53 X10^3/uL (2.7-7.7); Neutrophil % 65.6 % (47-70); Platelet Count 408 K/mm3 (150-450); RBC Distribution Width CV 12.6 % (11.6-14.6); RBC Distribution Width SD 43.3 fl (35.1-43.9); Red Blood Count 4.37 M/mm3 (4.6-6.2); White Blood Count 8.4 K/mm3 (4.4-11.0)
[2023-11-16 13:00] LABS: Anion Gap 9 (5-15); BUN 24 mg/dL (7-18); BUN/Creat Ratio 20.7 RATIO (10-20); Calcium,Total 8.9 mg/dL (8.5-10.1); Chloride 106 mmol/L (98-107); Creatinine, Serum 1.16 mg/dL (0.70-1.30); EST Glomerular Filtration Rate 68 mL/min (>60); Est Glom Filt Rate - Afr Amer 82 mL/min (>60); Glucose 90 mg/dL (74-106); Potassium 3.8 mmol/L (3.5-5.1); Sodium Level 139 mmol/L (136-145)
[2023-11-16 13:48] LABS: BNP,B-Type NATRIURETIC PEPTIDE 127.5 pg/mL (0-100)
== END | disposition home or self-care (01) ==
LOC: LAB 11:43
PROVIDERS: PCP Nurse Practitioner Family; Referring Provider Nurse Practitioner Gerontology; Visit Provider Nurse Practitioner Gerontology
DX: R06.00 Dyspnea, unspecified (principal)
CPT/HCPCS: 36415; 80048; 83880; 85025

== ENCOUNTER → 2023-12-01 | Outpatient (CLI) | payer MEDICAID, SELFPAY ==
--- NOTE | 2023-12-05 06:56 | STRESSREP_ITS ---
Stress Test Report Pharmacologic myocardial perfusion stress test. 63-year-old male with a history of coronary disease status post previous drug- eluting stent to the diagonal. Resting EKG demonstrates sinus bradycardia with a rate of 47 bpm. A left bundle branch block pattern is noted. Resting blood pressure is 126/68 mmHg. 0.4 mg of regadenoson was infused per usual protocol followed by rapid intravenous saline flush injection. Continuous EKG monitoring was performed. The maximum heart rate was 88 bpm which was 55% of max impacted heart rate the maximum workload was 1 metabolic equivalent. At rest there were no ST or T wave changes noted to suggest ischemia and at peak infusion nonspecific ST changes were noted which did not meet the criteria for ischemia. No clinical angina is noted. The final blood pressure was 128/64 mmHg. Myocardial perfusion protocol. 11.4 mCi of technetium 99m sestamibi was injected at rest. 0.4 mg of regadenoso n was infused per usual protocol. At peak infusion 36 mCi of technetium 99m sestamibi was injected stress images were obtained stress and rest images were reconstructed and compared in the short axis vertical long and horizontal long axis. Gated images were also obtained. Perfusion SPECT analysis: Review of the stress images demonstrate normal uptake of tracer noted in all areas of the myocardium with reduced perfusion noted in the anterior wall and apex. The resting images similar demonstrated reduced uptake of tracer noted in the anterior wall and apex. The above is suggestive of a previous anterior apical myocardial infarction. Mild reduction in the inferior wall was also noted on both scans. No obvious reversibility is noted suggest ischemia. Gated SPECT analysis: The gated ejection fraction is 44%. Conclusion: pharmacologic myocardial perfusion stress test with no evidence of ischemia. Anterior apical infarct is noted. Reduced ejection fraction.
== END | disposition home or self-care (01) ==
PROVIDERS: PCP Nurse Practitioner Family; Referring Provider Nurse Practitioner Gerontology; Visit Provider Nurse Practitioner Gerontology
DX: R07.9 Chest pain, unspecified (principal); Z95.5 Presence of coronary angioplasty implant and graft
CPT/HCPCS: 78452; 93017; A9500; A4216; J2785

== ENCOUNTER 2024-05-30 02:07 | Emergency (ER) | payer MEDICAID, SELFPAY ==
[2024-05-30] VITALS (15 sets, daily range): BP systolic 105–129; BP diastolic 57–97; PULSE 63–156; RESP 14–22; TEMP 36.4; O2SAT 94–100; BMI 22.9
--- NOTE | 2024-05-30 02:19 | EKG12_ITS ---
Test Reason : DYSRHYTHMIA Blood Pressure : */* mmHG Vent. Rate : 119 BPM Atrial Rate : 227 BPM P-R Int : * ms QRS Dur : 182 ms QT Int : 414 ms P-R-T Axes : 156 174 -27 degrees QTcB Int : 582 ms Ventricular-paced rhythm Abnormal ECG Confirmed by Karlos Wells ([id number]), scientific publications editor JAIME WALKER ([id number]) on 06/03/2024 7:40:27 AM Referred By: Confirmed By: Karlos Wells
--- NOTE | 2024-05-30 02:19 | RAD_ITS ---
PROCEDURE: CHEST 1 VIEW (PORTABLE) REASON FOR EXAM: AICD firing TECHNIQUE: Frontal view of the chest. COMPARISON: 01/30/2023 FINDINGS: There is now a left chest triple lead AICD present. Cardiac silhouette size is not significantly changed. There is now left base retrocardiac opacity and silhouetting of the left hemidiaphragm consistent with collapsed, consolidative change at the left lower lobe with possible trace left pleural fluid. Suggestion of possible subcutaneous emphysema along the mid to lower lateral chest wall soft tissues. The right lung appears clear. Pulmonary vascularity appears within limits. No pneumothorax identified. Right AC joint osteoarthrosis. RAD/Chest 1 View (Portable) IMPRESSION: There is now a left chest triple lead AICD present. Cardiac silhouette size is not significantly changed. There is now left base retrocardiac opacity and silhouetting of the left hemidi aphragm consistent with collapsed, consolidative change at the left lower lobe with possible trace left pleural fluid. Suggestion of possible subcutaneous emphysema along the mid to lower lateral ch est wall soft tissues. . Reading Location: [id number]
[2024-05-30 02:31] LABS: Absolute Lymphocyte Count 2.03 X10^3/uL (0.83-4.51); Absolute Neutrophil Count 8.6 X10^3/uL (2.0-7.7); Basophil# 0.07 X10^3/uL; Basophil% 0.6 % (0-1); Eosinophil# 0.06 X10^3/uL; Eosinophils% 0.5 % (0-5); Lymphocyte # 2.03 X10^3/ul (0.83-4.51); Lymphocyte % 16.4 % (19-41); Mean Corp Hgb Conc 34.1 g/dL (32-36); Mean Corpuscular Volume 90.9 fL (80-94); Mean Platelet Vol. 9.7 fl (6.2-12.0); Monocyte# 1.51 X10^3/uL; Monocyte% 12.2 % (0-10); NRBC Flagged by Analyzer 0 % (0-5); Neutrophil # 8.61 X10^3/uL (2.7-7.7); Neutrophil % 69.7 % (47-70); POSITIVE DIFFERENTIAL YES; Platelet Count 305 K/mm3 (150-450); RBC Distribution Width CV 12.8 % (11.6-14.6); RBC Distribution Width SD 42.4 fl (35.1-43.9); Red Blood Count 4.51 M/mm3 (4.6-6.2); White Blood Count 12.4 K/mm3 (4.4-11.0)
[2024-05-30 02:34] LABS: Differential Indicated SCAN CRITERIA MET
[2024-05-30 03:07] LABS: Anion Gap 11 (5-15); BUN 18 mg/dL (4-19); BUN/Creat Ratio 17.8 RATIO (10-20); Carbon Dioxide 21.9 mmol/L (22.0-29.0); Chloride 102 mmol/L (96-108); EST Glomerular Filtration Rate 86 (>60); Estimated Creatinine Clearance 71.61 ml/min; Glucose 149 mg/dL (70-99); Magnesium 2.1 mg/dL (1.5-2.2); Potassium 3.6 mmol/L (3.3-5.1); Sodium Level 135 mmol/L (133-145)
[2024-05-30 03:28] LABS: Differential Comment SCANNED
--- NOTE | 2024-05-30 03:42 | EX.ED.DYSGE1 ---
HPI History of Present Illness Chief Complaint: Palpitations Informant: patient Narrative Narrative: Presents by EMS for concerns for defibrillator going off 3 times. He had this placed a couple days ago discharged yesterday at [facility]. He has EF of 25% per patient. He states he was near the microwave initially thought it was the microwave. He felt 2 more shocks afterwards. He had no racing heart. No lightheaded symptoms. No chest pains prior. This was performed electively where he stayed overnight. No recent vomiting or diarrhea. No recent cough. No fevers. No urinary symptoms. Patient was unsure what type of device that was placed. He reports history of [place] with 3 stents. He had his cards with him for the stents initial 1 placed October 2021 diagonal 1. November 2021 additional 2 stents placed in the proximal circumflex. Prior similar symptoms: No PFSH PFSH Medical History Tobacco abuse Chronic alcohol dependence, continuous Polysubstance dependence History of ST elevation myocardial infarction (STEMI) (10/11/21) Essential hypertension Atherosclerotic heart disease of [place] coronary artery without angina pectoris Substance abuse Alcohol abuse Bipolar disorder Chronic pain GERD (gastroesophageal reflux disease) Home Medications ?Medication ?Instructions ?Recorded ?Last Taken ?Type atorvastatin 40 mg tablet 40 mg PO DAILY #90 tabs 04/14/23 Unknown Rx furosemide 40 mg tablet (Lasix) 40 mg PO DAILY #90 tabs 04/14/23 Unknown Rx lisinopril 5 mg tablet 5 mg PO DAILY #90 tabs 04/14/23 Unknown Rx ticagrelor 90 mg tablet (Brilinta) 90 mg PO BID #60 tabs 04/14/23 Unknown Rx acetaminophen 500 mg tablet mg 05/30/24 Unknown History metoprolol tartrate 50 mg tablet 50 mg PO BID #60 tabs 05/30/24 Unknown Rx oxycodone 5 mg tablet mg 05/30/24 Unknown History Allergy/AdvReac Type Severity Reaction Status Date / Time No Known Allergies Allergy Verified 05/30/24 02:08 Family History Brother Pancreatic cancer Surgical History History of coronary artery stent placement (08/11/22) History of appendectomy Social History Smoking Status: Current every day smoker tobacco type: cigarettes quit status: considering quitting alcohol intake: current alcohol intake frequency: a few times a month Alcohol type: beer substance use type: former substance user Date of last use: December 2022 and methamphetamine caffeine: Yes Type: carbonated beverages Number of servings: 2 ROS ROS ED Constitutional Constitutional ED: Denies chills, fever(s) or sweats ENT ENT ED: Denies sore throat Cardiovascular Cardiovascular: Reports other Details: Possible AICD firing ; Denies chest pain, leg edema, palpitations or racing heartbeat Respiratory/Chest Respiratory/Chest: Denies cough, dyspnea or dyspnea on exertion Gastrointestinal Gastrointestinal: Denies abdominal pain, diarrhea, nausea or vomiting Genitourinary Genitourinary ED: Denies dysuria, hematuria or urinary frequency Musculoskeletal Musculoskeletal: Denies back pain, extremity pain or neck pain Integumentary Denies rash or wounds Neurologic Neurologic: Denies headache(s), paresthesias or weakness EXAM Physical Exam Const Vital Signs: 05/30/24 02:09 05/30/24 02:16 05/30/24 03:07 Temperature 97.6 F L Temperature Source Oral Pulse Rate 122 H 107 H Respiratory Rate 22 H 18 Blood Pressure 129/57 H 112/87 H Blood Pressure Mean 81 95 Pulse Ox 94 99 Oxygen Delivery Method Room Air Room Air 05/30/24 04:00 05/30/24 05:00 05/30/24 06:00 Temperature Temperature Source Pulse Rate 107 H 63 100 Respiratory Rate 16 22 H 18 Blood Pressure 110/83 H 119/67 127/89 H Blood Pressure Mean 92 84 101 Pulse Ox 99 100 99 Oxygen Delivery Method Room Air Room Air Room Air 05/30/24 07:00 05/30/24 08:00 05/30/24 08:15 Temperature Temperature Source Pulse Rate 104 H 156 H 107 H Respiratory Rate 14 18 20 H Blood Pressure 107/58 L 115/66 108/73 Blood Pressure Mean 74 82 84 Pulse Ox 97 95 95 Oxygen Delivery Method Room Air Room Air 05/30/24 08:25 Temperature Temperature Source Pulse Rate 114 H Respiratory Rate 18 Blood Pressure 116/76 Blood Pressure Mean 89 Pulse Ox 95 Oxygen Delivery Method Room Air Positive well nourished and well developed General Appearance ED: well developed and NAD HEENT Reports moist mucous membranes normocephalic and atraumatic Eyes General Eye ED: Yes normal appearance of both eyes Neck full ROM Chest Wall Chest Narrative: Left upper chest incision with skin glue. There is also left lower chest incision with skin glue. Chest: Negative for tenderness Resp normal respiratory effort and normal air movement Effort and Inspection: symmetric chest movement; Negative for respiratory distress Cardio regular rhythm and no murmurs Rate: tachycardic Peripheral Pulses: pulses 2+ throughout GI normal to inspection, nondistended, normoactive bowel sounds and non-tender Palpation: Negative for guarding or rebound tenderness present Extremity normal to inspection General Extremety ED: Negative for edema or tenderness General Extremity: Negative for edema Neuro oriented x3 and no sensory deficits noted Sensorium / Orientation: awake and alert Skin no rashes or lesions noted and no wounds MDM MDM MDM Narrative Medical decision making narrative: Interventions / MDM: Differential diagnosis: AICD firing, A-fib with RVR, history of cardiomyopathy Diagnosis considered but do not suspect: N/A My EKG interpretation: paced rhythm rate of 119, no ST changes. Imaging independently reviewed and interpreted by myself: 1 view chest x-ray: 3 leads from definitive device. There lateral chest subcutaneous air noted. Per radiology collapse left lower lobe with concerns for consolidative changes. External documents reviewed: [employer]: Placement of biventricular AICD 05/27/2024 secondary to combination of ischemic and nonischemic cardiomyopathy. He had a mini thoracotomy performed for epidural lead placement. History of cocaine use meth use and alcohol use. Cardiology notes from February 2024 in the system persistent cardiomyopathy with referral to EP at that time. Test considered but not ordered:N/A ED course: Patient presents concerns for defibrillator firing x 3. This placed 2 days ago. No prodromal symptoms. Does not know his device. EKG paced rhythm rate of 119. Blood pressure stable. Will check labs and magnesium. Chest x-ray ordered. 0300: Labs stable with electrolytes normal magnesium normal. Potassium 3.6. Will optimize potassium with oral replacement as he reported defibrillation. 1 view chest x-ray 3 leads, there is concerns for subcutaneous air in the left chest wall. Concerns of infiltrate consolidation. He has no cough. Able to review records through [employer], he had a [place] [employer] device. Part of his defibrillator placement, he had small left thoracotomy with dissection into tissue for evaluation. This explains the subcutaneous air tissue. 0330: Currently [employer] interrogation device not picking up the device to be read. They will call helpline for assistance. 0430: Reported information was transmitted from device to [employer]. Awaiting results. 0545: Results obtained I spoke with [employer] billing representative. Reviewed his interrogation. Apparently at around 1:15 AM he had atrial tachycardia run for total of 6 minutes. There initial not on therapy then burst therapy. Third attempt 3 minutes and 34 seconds and was aborted. At 3 minutes and 59 seconds into the the atrial tachycardia deliver 41 J shock, additional 41 J shock 4 minutes and 33 seconds in. At 5 minutes 3 seconds in 5 minutes and 17 seconds and additional 2 shocks. Reviewing the rhythm more concerns for A-fib with RVR. Not V-fib or V. tach. Does not have history of atrial fibrillation. Currently heart rate is down to 63 he is on carvedilol. 0600: I spoke with certified paralegal Dr. Wells discussed patient's history recent procedures and findings. He recommended Coreg to be given at 12.5 mg. 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 0715: Dr. Wells in the department, states with discussion with electrophysiology, A-fib RVR can be an event seen after his procedure. This is transient. This is not need anticoagulants at this time. He was having bedside echocardiogram ordered to evaluate for pericardial effusion in the ED. 0755: Evaluated bedside there is no pericardial effusion per Dr. Wells. Noticed small pleural effusion. He recommended IV Lasix 40 mg in the ED which was ordered. Discussion of plan of care with the patient. He will be switched over the metoprolol to tartrate 50 mg twice daily. He will start his lisinopril around noon time. He will stop his Coreg. Patient has follow-up with electrophysiology June 12 in [place]. He will keep this appointment. Plan of care was discussed with the patient with instructions. 0800: Prior to being discharged, called back to room heart rate in the monitor is 130s to 150s. Appears atrial fibrillation. I sent a video to Dr. Wells through [employer], he agrees. Recommend IV Lopressor. He came down to department, will continue to monitor in the department for stability. Reports can be 3 to 6 weeks of in and out of atrial fibs from postprocedure pericarditis. Will continue to monitor heart rate for rate control in the department. 0839: patient signed out to Dr. Rodriguez for final disposition. Re-evaluation: stable Disposition discussed with patient/family/significant other: Patient Case discussed with consulting clinician: Cardiology This note was generated with [employer] dictation software. It may contain incorrect words, spelling, and punctuation that were not noted in checking the note before signing. Lab Data Attestation: I reviewed the patient's lab results. Labs: Laboratory Results - last 24 hr 05/30/24 02:26 WBC 12.4 H RBC 4.51 L Hgb 14.0 Hct 41.0 MCV 90.9 MCH 31.0 MCHC 34.1 RDW Std Deviation 42.4 RDW Coeff of Reggie 12.8 Plt Count 305 MPV 9.7 Immature Gran % (Auto) 0.600 Neut % (Auto) 69.7 Lymph % (Auto) 16.4 L [place] % (Auto) 12.2 H Eos % (Auto) 0.5 Baso % (Auto) 0.6 Absolute Neuts (auto) 8.6 H Absolute Lymphs (auto) 2.03 Nucleated RBC % 0 Differential Comment SCANNED Diff Path Review May foll Sodium 135 Potassium 3.6 Chloride Direct 102 Carbon Dioxide 21.9 L Anion Gap 11 BUN 18 Creatinine 1.0 Estim Creat Clear Calc 71.61 Est GFR (MDRD) Non-Af 86 BUN/Creatinine Ratio 17.8 Glucose 149 H Calcium 9.0 Magnesium 2.1 Radiography Diagnostic Testing: Clinical Impression(s) from Imaging Studies Chest X-Ray 05/30/24 02:19 IMPRESSION: There is now a left chest triple lead AICD present. Cardiac silhouette size is not significantly changed. There is now left base retrocardiac opacity and silhouetting of the left hemidiaphragm consistent with collapsed, consolidative change at the left lower lobe with possible trace left pleural fluid. Suggestion of possible subcutaneous emphysema along the mid to lower lateral chest wall soft tissues. . Reading Location: [facility] Critical Care Time Critical Care Time: Yes Critical care time (excluding procedures): 30-74 minutes, Discussing w/Patient &/or Family/Director Digital Advertising, Discussing w/Consultants, Arranging Admission or Transfer, Performing Direct Patient Care at Bedside and - (40 minutes) Discharge Plan Triage Chief Complaint: Palpitations ED Provider: Jigar Bhardwaj Dx/Rx/DC Orders Clinical Impression: AICD discharge, History of coronary artery stent placement, Ischemic cardiomyopathy, Atrial fibrillation with RVR Instructions: AFib Dc, ED Pacer AICD Dc Prescriptions: New metoprolol tartrate 50 mg tablet 50 mg PO BID Qty: 60 0RF Discontinued carvedilol 6.25 mg tablet 6.25 mg PO BID Qty: 60 11RF Rx Instructions: must administer with a meal/food No Action atorvastatin 40 mg tablet 40 mg PO DAILY Qty: 90 3RF furosemide [Lasix] 40 mg tablet 40 mg PO DAILY Qty: 90 3RF lisinopril 5 mg tablet 5 mg PO DAILY Qty: 90 3RF Brilinta 90 mg tablet 90 mg PO BID Qty: 60 7RF acetaminophen 500 mg tablet Patient Comments: [NO ORIGINAL SIG] oxycodone 5 mg tablet Primary Care Provider: Tiarra Roach Referrals: Tiarra Roach, PLASTIC MACHINE OPERATOR-C [Primary Care Provider] - Activity Restrictions/Additional Instructions: Your AICD did fire due to atrial fibrillation with RVR. You were seen by cardiology Dr. Wells who discussed with your electrophysiology team. This can be seen with your procedure. No recommendations of anticoagulant at this time. Do not take your Lasix today as you were given IV Lasix. Stop your carvedilol. You will start taking metoprolol as prescribed twice a day. Take your lisinopril daily around noontime. Continue oral Lasix tomorrow. Keep your follow-up with cardiology on June 12 in [place]. Print Language: Frisian Disposition Disposition: Home, Self Care
--- NOTE | 2024-05-30 04:11 | ED.RN ---
Pt yells out to nurses station stating ma'am, this RN enters room and pt states I think I am hallucinating. I had the weirdest dream of a nurse standing behind me, and I am seeing people in this room. Dr. Bhardwaj made aware.
[2024-05-30] MEDS: Carvedilol 12.5 MG Tablet PO (06:17)
--- NOTE | 2024-05-30 06:25 | ED.RN ---
Pt asked if he could take his home medications he brought with him, per Dr. Bhardwaj, pt allowed to take his Atorvastatin, Oxycodone, Brilinta.
--- NOTE | 2024-05-30 07:49 | CON.PCM.CA_ITS ---
Assessment & Plan Assessment/Plan (1) Atrial fibrillation with RVR: PLAN: Patient's ICD interrogation revealed atrial fibrillation with a rapid ventricular response that was above the VT detection zone which is 200?2 49 he came with a ventricular rate of 248. The patient received 4 shocks after failed ATP pacing. This appears to converted him to sinus tachycardia at 100-110 bpm. At 1 point time the ER his heart rate was down in the 90 bpm range. While dictating this note the patient went back into atrial for but a heart rate of 150 bpm in the ED. We will give him some IV Lopressor and try to control his rate. His under the detect rate of 180 on his VT monitoring zone. Will consider alternative antiarrhythmics after discussed with Dr. Almonte if he does not revert back into sinus rhythm. (2) AICD discharge: PLAN: Patient's AICD discharge was due to atrial fibrillation with rapid ventricular response. Please see #1 above for further treatment decisions. (3) Ischemic cardiomyopathy: PLAN: Patient is quick look echo shows an EF of approximately 30% with apical and inferior lateral severe hypokinesis. This is consistent with his known coronary artery disease he also has global LV dysfunction consistent with his known mixed cardiomyopathy. He does not have any pericardial effusion documented. There is a left pleural effusion noted. (4) Atherosclerotic heart disease of [place] coronary artery without angina pectoris: QUALIFIERS: [place] vs. transplanted heart: [place] heart Qualified Code(s): I25.10 - Atherosclerotic heart disease of [place] coronary artery without angina pectoris PLAN: Patient status post stenting of the diagonal and circumflex remotely. Patient denies any anginal type symptoms. (5) Polysubstance dependence: PLAN: Patient reports he has been clean from illicit drugs for several years. He does occasional drink alcohol and smokes cigarettes. PLAN: Plan 1. Will attempt to rate control the patient with Lopressor and if not converted we will contact consider antiarrhythmic therapy. 2. Patient will follow-up with Dr. Almonte in [place] office per his previous arranged appointment on June 12, 2024. 3. Will give the patient IV Lasix this morning given his increasing shortness of breath over the last several days. He does have a left pleural effusion noted on echo. 4. Will monitor the patient in the emergency department for resolution of his arrhythmia and then determine further treatment options including possible admission. HPI Consult Data Date of Consult: 05/30/24 HPI Narrative Reason for Consultation: ICD firing. HPI Narrative: BAN ANSARI, is a 64 M who presents with a history of mixed cardiomyopathy related to coronary artery disease and prior substance abuse disorder. Patient does continue to partake of some alcohol. He has been clean of illicit drug use for many years. Patient's most recent echo in September 2023 showed an EF of 25%. He had a remote STEMI in October 2021 with stent to the diagonal and a stent to the circumflex. His EF was 35% at that time but has since deteriorated. The patient was evaluated and underwent KILN FIRER HELPER-D implant with an epicardial left ventricular apical lead via minithoracotomy on 05/28/2024 at [facility]. The patient has been seen and evaluated by Dr. Naif Almonte. Patient had an episode where he was shocked 4 times early this a.m. Interrogation of device shows that this was atrial fibrillation with a rapid ventricular response is measured atrial rate was 248 with ventricular rate of 170 bpm he received 4 shocks at 41 J and converted to what appears to be sinus tachycardia with BiV pacing. The patient reports he has had some increasing shortness of breath recently. A quick look echocardiogram in the emergency department at [facility] revealed no pericardial effusion but he does have a pleural effusion. His EF was estimated in the 30% range his right ventricular lead is well-placed his right atrial lead is well-placed. Patient denies any anginal type symptoms. He is resting comfortably flat in the bed when examined in the emergency department. I did discuss the situation with Dr. Almonte. The patient reports he does have dependent edema that is noted at his ankles at the end of the day but it resolves overnight. In the emergency department the patient received 12.5 mg dose of Coreg orally. His heart rate was in the 90-110 bpm range with BiV pacing on telemetry. [facility] Medical History Tobacco abuse Chronic alcohol dependence, continuous Polysubstance dependence History of ST elevation myocardial infarction (STEMI) (10/11/21) Essential hypertension Atherosclerotic heart disease of [place] coronary artery without angina pectoris Substance abuse Alcohol abuse Bipolar disorder Chronic pain GERD (gastroesophageal reflux disease) Home Medications ?Medication ?Instructions ?Recorded ?Last Taken ?Type atorvastatin 40 mg tablet 40 mg PO DAILY #90 tabs 04/03 05/27 Unknown Rx furosemide 40 mg tablet (Lasix) 40 mg PO DAILY #90 tab s 04/14/23 Unknown Rx lisinopril 5 mg tablet 5 mg PO DAILY #90 tabs 04/14 Unknown Rx ticagrelor 90 mg tablet (Brilinta) 90 mg PO BID #60 ta bs 04/14/23 Unknown Rx acetaminophen 500 mg tablet mg 05/30/24 Unknown Histor y metoprolol tartrate 50 mg tablet 50 mg PO BID #60 tabs 05/30/24 Unknown Rx oxycodone 5 mg tablet mg 05/30/24 Unknown History Allergy/AdvReac Type Severity Reaction Status Date / Time No Known Allergies Allergy Verified 05/30/24 02:08 Family History Brother Pancreatic cancer Surgical History History of coronary artery stent placement (11/11/21) History of appendectomy Social History Smoking Status: Current every day smoker tobacco type: cigarettes quit status: considering quitting alcohol intake: current alcohol intake frequency: a few times a month Alcohol type: beer substance use type: former substance user Date of last use: December 2022 and methamphetamine caffeine: Yes Type: carbonated beverages Number of servings: 2 ROS Constitutional Constitutional: Reports as per HPI Eyes Eyes: Reports systems reviewed and no addt'l complaints, except as documented ENT HEENT: Reports systems reviewed and no addt'l complaints, except as documented Cardiovascular Cardiovascular: Reports as per HPI Respiratory/Chest Respiratory/Chest: Reports as per HPI Gastrointestinal Gastrointestinal: Reports systems reviewed and no addt'l complaints, except as documented Genitourinary Genitourinary: Reports systems reviewed and no addt'l complaints, except as documented Musculoskeletal Musculoskeletal: Reports systems reviewed and no addt'l complaints, except as documented Integumentary Integumentary: Reports systems reviewed and no addt'l complaints, except as documented Neurologic Neurologic: Reports systems reviewed and no addt'l complaints, except as documented Psychiatric Psychiatric: Reports systems reviewed and no addt'l complaints, except as documented Endocrine Endocrinology: Reports systems reviewed and no addt'l complaints, except as documented Hematologic/Lymphatic Hematologic/Lymphatic: Reports systems reviewed and no addt'l complaints, except as documented Allergic/Immunologic Allergic/Immunologic: Reports systems reviewed and no addt'l complaints, except as documented Physical Exam Narrative Patient is resting comfortably he does have the appearance of mildly disheveled which is his usual appearance. Const alert and oriented x3 Constitutional Narrative: Resting comfortably in the gurney. HEENT normocephalic Eyes PERRL Neck Neck Narrative: Patient does have some JVD above the clavicle at 30 degrees. Chest Chest Narrative: The device pocket is clean and dry and no evidence of effusion or bruising. The left thoracotomy site is tender to palpation but appears to be healing well. Resp normal respiratory effort Auscultation: crackles bilateral base and diminished lung sounds left lower Cardio Rate: tachycardic Rhythm: regular rhythm Heart Sounds: S1 normal and S2 normal; Negative for click, gallop or murmur GI soft to palpation and non-tender Extremity no pedal edema Neuro Neuro Narrative: Alert and oriented x 3 Psych mental status grossly normal Risk Stratification Risk Stratification Applicable: No Charges/Coding Visit Charges Inpatient E&M: 18620 Init Hosp L3 Objective Data Vital Signs: Vital Signs Temp Pulse Resp BP Pulse Ox O2 Del Method 97.6 F L 104 H 14 107/58 L 97 Room Air 05/30/24 02:09 05/30/24 07:00 05/30/24 07:00 05/30/24 07:00 05/30/24 07:00 05/30/24 07:00 Oxygen Delivery Method Room Air Weight: 146 lb 9.718 oz Body Mass Index (BMI) 22.9 Lab / Micro Data Attestation: I reviewed the patient's lab results. 05/30/24 02:26 05/30/24 02:26 Labs: Laboratory Results - last 24 hr 05/30/24 02:26: WBC 12.4 H, RBC 4.51 L, Hgb 14.0, Hct 41.0, MCV 90.9, MCH 31.0, MCHC 34.1, RDW Std Deviation 42.4, RDW Coeff of Reggie 12.8, Plt Count 305, MPV 9.7, Immature Gran % (Auto) 0.600, Neut % (Auto) 69.7, Lymph % (Auto) 16.4 L, M kyleigh % (Auto) 12.2 H, Eos % (Auto) 0.5, Baso % (Auto) 0.6, Absolute Neuts (auto) 8.6 H, Absolute Lymphs (auto) 2.03, Nucleated RBC % 0, Differential Comment SCANNED, Diff Path Review May foll, Sodium 135, Potassium 3.6, Chloride Direct 102, Carbon Dioxide 21.9 L, Anion Gap 11, BUN 18, Creatinine 1.0, Estim Creat Clear Calc 71.61, Est GFR (MDRD) Non-Af 86, BUN/Creatinine Ratio 17.8, Glucose 149 H, Calcium 9.0, Magnesium 2.1 Rhythm Strip Rhythm Strip: Sinus Tach Rate: 104 Cardiology Labs/Tests 05/30/24 02:26: WBC 12.4 H, RBC 4.51 L, Hgb 14.0, Hct 41.0, MCV 90.9, MCH 31.0, MCHC 34.1, Plt Count 305, MPV 9.7, Immature Gran % (Auto) 0.600, Neut % (Auto) 69.7, Lymph % (Auto) 16.4 L, [place] % (Auto) 12.2 H, Eos % (Auto) 0.5, Baso % (Auto) 0.6, Absolute Neuts (auto) 8.6 H, Nucleated RBC % 0, Sodium 135, Potassium 3.6, Carbon Dioxide 21.9 L, Anion Gap 11, BUN 18, Creatinine 1.0, Est GFR (MDRD) Non-Af 86, BUN/Creatinine Ratio 17.8, Glucose 149 H, Calcium 9.0, Magnesium 2.1 Rhythm: EKG: ECHO: Stress Test: Cardiac Cath: PCI: CT Surgery: Holter monitor: EPS: PPM: CXR: Chest CT Scan: Radiography Diagnostic Testing: Radiology Impression Chest X-Ray 05/30/24 02:19 IMPRESSION: There is now a left chest triple lead AICD present. Cardiac silhouette size is not significantly changed. There is now left base retrocardiac opacity and silhouetting of the left hemidiaphragm consistent with collapsed, consolidative change at the left lower lobe with possible trace left pleural fluid. Suggestion of possible subcutaneous emphysema along the mid to lower lateral chest wall soft tissues. . Reading Location: [id number]
[2024-05-30] MEDS: Metoprolol Tartrate 5 MG/5 ML Vial IV ×2 (08:10→08:18)
--- NOTE | 2024-05-30 08:10 | ED.RN ---
reviewing dc instructions. heart rate elevated to 150's, monitor rythm change. dr mendoza called to bedside and is consulting dr hernandez.
[2024-05-30] MEDS: Furosemide 40 MG/4 ML Vial IV (08:13)
--- NOTE | 2024-05-30 09:10 | ECHOL_ITS ---
Reason For Study Reason For Study: A. fib w/RVR, R/O Pericardial effusion Procedure This was a limited 2D transthoracic echocardiogram. Patient scanned supine in the ED. Exam performed portable in ED. Left Ventricle Mildly dilated left ventricle. The estimated ejection fraction is 30 %. There is evidence of diastolic dysfunction. The base of the LV is jarrell well. Mild hypokinesis of the septum, severe hypokinesis of other desai. Right Ventricle Normal RV size. ICD or pacer leads identified within the right ventricle. Normal systolic function. Atria The left and right atria are normal. ICD or pacer leads identified within the right atrium. No doppler evidence for ASD. Mitral Valve There is no mitral valve stenosis. Mild (1+) mitral valve insufficiency. Tricuspid Valve There is no tricuspid stenosis. Unable to estimate RV systolic pressure due to inadequate jet, pulmonary artery pressure probably normal. Aortic Valve There is no aortic stenosis. No aortic valve insufficiency. Pulmonic Valve There is no pulmonic valvular stenosis. No pulmonic valve insufficiency. Great Vessels Normal sized aortic root. Pericardium/Pleural No pericardial effusion. MMode/2D Measurements & Calculations LVIDd: 6.4 cm IVSd: 0.97 cm Ao root diam: 2.9 cm LVIDs: 4.5 cm LVPWd: 1.0 cm RVDd: 3.6 cm FS: 29.5 % LVAd ap4: 40.6 cm2 LVAd ap2: 43.1 cm2 SV(MOD-sp4): 53.3 ml LVLd ap4: 8.7 cm LVLd ap2: 9.5 cm SI(MOD-sp4): 30.1 ml/m2 EDV(MOD-sp4): 167.2 ml EDV(MOD-sp2): 165.6 ml EDV(sp4-el): 160.8 ml EDV(sp2-el): 166.0 ml LVAs ap4: 34.0 cm2 LVAs ap2: 34.3 cm2 LVLs ap4: 8.7 cm LVLs ap2: 8.9 cm ESV(MOD-sp4): 113.9 ml ESV(MOD-sp2): 110.1 ml ESV(sp4-el): 113.2 ml ESV(sp2-el): 112.7 ml EF(MOD-sp4): 31.9 % EF(MOD-sp2): 33.5 % EF(sp4-el): 29.6 % SV(MOD-sp2): 55.5 ml SV(sp4-el): 47.6 ml LA dimension(2D): 3.9 cm SI(MOD-sp2): 31.4 ml/m2 Doppler Measurements & Calculations TR max cheri: 189.9 cm/sec TR max P.4 mmHg ECHO/Echo, Limited Study Interpretation Summary Mildly dilated left ventricle. The estimated ejection fraction is 30 %. There is evidence of diastolic dysfunction. Mild (1+) mitral valve insufficiency. Ordering Physician: Karlos Wells Referring Physician: Tiarra Roach Performed By: Berna Ivey RDCS
[2024-05-30] MEDS: Metoprolol Tartrate 50 MG Tablet PO (11:15)
[2024-05-31 09:27] LABS: Pathologist Review Reviewed
== END 2024-05-30 12:46 | disposition home or self-care (01) ==
PROVIDERS: Emergency Provider Emergency Medicine; PCP Nurse Practitioner Family; Visit Provider Emergency Medicine
DX: I48.0 Paroxysmal atrial fibrillation (principal); J90 Pleural effusion, not elsewhere classified; I47.19 Other supraventricular tachycardia; I10 Essential (primary) hypertension; G89.29 Other chronic pain; I25.10 Atherosclerotic heart disease of native coronary artery without angina pectoris; I25.5 Ischemic cardiomyopathy; I25.2 Old myocardial infarction; F17.210 Nicotine dependence, cigarettes, uncomplicated; Z79.02 Long term (current) use of antithrombotics/antiplatelets; Z79.891 Long term (current) use of opiate analgesic; Z79.899 Other long term (current) drug therapy; Z95.5 Presence of coronary angioplasty implant and graft; Z95.810 Presence of automatic (implantable) cardiac defibrillator
CPT/HCPCS: 71045; 80048; 83735; 85025; 93005; 93308; 96374; 99285; A4216; J1940

== ENCOUNTER 2024-06-02 17:56 | Emergency (ER) | payer MEDICAID, SELFPAY ==
[2024-06-02 17:58] VITALS: PULSE 99; RESP 18; TEMP 36.7; O2SAT 99; BMI 22.5
--- NOTE | 2024-06-02 18:14 | EKG12_ITS ---
Test Reason : Blood Pressure : */* mmHG Vent. Rate : 95 BPM Atrial Rate : 95 BPM P-R Int : * ms QRS Dur : 210 ms QT Int : 456 ms P-R-T Axes : * 173 -12 degrees QTcB Int : 573 ms Ventricular-paced rhythm Abnormal ECG Confirmed by Karlos Wells ([id number]), purchase request editor JAIME WALKER ([id number]) on 06/04/2024 10:49:42 AM Referred By: Confirmed By: Karlos Wells
--- NOTE | 2024-06-02 18:15 | RAD_ITS ---
PROCEDURE: CHEST 1 VIEW (PORTABLE) REASON FOR EXAM: Palpitations TECHNIQUE: Frontal and lateral views of the chest. COMPARISON: 05/30/2024. FINDINGS: Left chest triple lead pacemaker. Interval decrease in mild subcu emphysema on the left lateral chest wall. The heart size is normal. The mediastinal contour is unremarkable. The lungs are clear. Degenerative changes are identified within the thoracic spine. RAD/Chest 1 View (Portable) IMPRESSION: No radiographic evidence of acute cardiopulmonary disease Reading Location: [facility]
--- NOTE | 2024-06-02 18:17 | EDS_ITS ---
HPI History of Present Illness Chief Complaint: Palpitations Narrative Narrative: 62-year-old male past medical history of coronary artery disease, states he has 3 stents in his coronary arteries, recently had a pacemaker/AICD placed a few weeks ago at [facility]. He states this was secondary to him having a 20% ejection fraction. He relates history that just prior to arrival his pacemaker/defibrillator fired twice. Of note, he was seen in the emergency department a few days ago for the same thing. He states that he was told that if it fires again that he needs to come back to the emergency department. [facility] Medical History Tobacco abuse Chronic alcohol dependence, continuous Polysubstance dependence History of ST elevation myocardial infarction (STEMI) (10/11/21) Essential hypertension Atherosclerotic heart disease of [place] coronary artery without angina pectoris Substance abuse Alcohol abuse Bipolar disorder Chronic pain GERD (gastroesophageal reflux disease) Home Medications ?Medication ?Instructions ?Recorded ?Last Taken ?Type atorvastatin 40 mg tablet 40 mg PO DAILY #90 tabs 04/03 05/27 Unknown Rx furosemide 40 mg tablet (Lasix) 40 mg PO DAILY #90 tab s 04/14/23 Unknown Rx lisinopril 5 mg tablet 5 mg PO DAILY #90 tabs 04/14 Unknown Rx ticagrelor 90 mg tablet (Brilinta) 90 mg PO BID #60 ta bs 04/14/23 Unknown Rx acetaminophen 500 mg tablet mg 05/30/24 Unknown Histor y metoprolol tartrate 50 mg tablet 50 mg PO BID #60 tabs 05/30/24 Unknown Rx oxycodone 5 mg tablet mg 05/30/24 Unknown History Allergy/AdvReac Type Severity Reaction Status Date / Time No Known Allergies Allergy Verified 06/02/24 18:04 Family History Brother Pancreatic cancer Surgical History History of coronary artery stent placement (11/11/21) History of appendectomy Social History Smoking Status: Current every day smoker tobacco type: cigarettes quit status: considering quitting alcohol intake: current alcohol intake frequency: a few times a month Alcohol type: beer substance use type: former substance user Date of last use: December 2022 and methamphetamine caffeine: Yes Type: carbonated beverages Number of servings: 2 ROS ROS ED ROS Narrative Review of systems positive for AICD firing twice. Patient may have had heart palpitations prior to it. Denies any chest pain prodromal he or shortness of breath. No recent fevers or chills. No nausea or vomiting. EXAM Physical Exam Narrative Exam Narrative: Afebrile. Vital signs noted. Nontoxic-appearing. Cardiovascular examination reveals a regular rate and rhythm with intermittent tachycardia auscultated. Abdomen is soft and nontender. Lungs clear to auscultation bilaterally. Neurological examination shows him to be awake, alert, oriented, interactive, and cooperative. Examination is nonfocal and nonlateralizing. No pedal edema. Const Vital Signs: 06/02/24 17:58 06/02/24 18:02 Temperature 98.1 F Temperature Source Oral Pulse Rate 99 Respiratory Rate 18 Respiratory Effort Normal Non-Labored Pulse Ox 99 Oxygen Delivery Method Room Air MDM MDM MDM Narrative Medical decision making narrative: I reviewed the patient's prior records. He did have a pacemaker interrogation which showed atrial fibrillation. In review of his prior ED visit. Patient had been discussed with cardiology, and he was changed from carvedilol to metoprolol for his underlying atrial fibrillation. Dr. Wells with cardiology had been on- call and discussed this with the EP plumber helper at [facility] stating that even after procedure, patient could have atrial fibrillation with RVR. In review of what Dr. Bhardwaj had send regarding his [employer] interrogation of his device, there was no V. tach or ventricular fibrillation. Once again, his pacemaker/ICD will be interrogated and basic laboratories will be performed including CBC, electrolyte panel, and magnesium. I will also obtain a chest x- ray and EKG. I do not feel that he needs a troponin because he is not currently having any chest pain. I did review his problem list and he has ischemic cardiomyopathy as well. Patient will be discussed with cardiology as well. Patient relays history that he had to return to [facility] because they were having difficulty with the third lead, and had to go through his chest wall/in between his ribs according to the patient. EKG was obtained and interpreted by myself independently as a ventricular paced rhythm at [address] changes. No STEMI. Patient has slightly elevated white count of 11.3 on review of his laboratory work. I think this is nonspecific, hemoglobin normal at 14.9, hematocrit 43.7. Platelet count elevated at 494 which may be more of an acute phase reactant. Remotely, has had thrombophilia in the past so I think is nonspecific. Additionally when compared to prior labs his white count was a little higher when he was seen previously. AST and ALT and alk phos are normal. Glucose elevated at 128 with a normal anion gap of 13. Magnesium normal at 2.1. Potassium normal at 3.3. Chest x-ray interpreted by myself independently shows no acute process. I reviewed the radiology report which confirms my independent interpretation. In review of the [employer] interrogation of his AICD, starting at 1:15 in the morning he had ventricular tachycardia at 170 bpm and had multiple shocks on the 27th. Starting today he had nonsustained ventricular tachycardia as high as 201 bpm starting at around 2 PM. At 1720 he had ventricular tachycardia 199 bpm without therapy, nonsustained ventricular tachycardia at 1721, then 1722 ventricular tachycardia at 174 bpm without therapy. Starting at 1723 he had ATR at 361 bpm then as high as 444 bpm with average ventricular rate at as high as 199 bpm. Then at 1725, he had ventricular tachycardia at 197 bpm and was shocked twice with 41 J. Subsequently, he had a TR and PMT. Last delivered shock was at 1731 today. I discussed the patient with Dr. Wells with cardiology. It was thought that they were reading his atrial fibrillation with RVR more as ventricular tachycardia. It was felt that the patient can be discharged to follow-up with his plumber helper at [facility] on Monday. He states he has an appointment. Dr. Wells would like his metoprolol increased to 50 mg of tartrate 3 times a day with breakfast, lunch, and dinner. I discussed the patient with his significant other over the telephone. He will be given a dose of metoprolol tartrate 50 mg here but he should take another dose prior to bedtime. RN reported his blood pressure at 122 systolic so it was thought that if it is above [address] Wells, that he would be able to tolerate this beta-blockade. Patient will follow-up with his plumber helper and with cardiology down here as previously planned. As instructed by Dr. Wells that the patient is to call him in the office if he has any problems in the future. I feel he can be discharged to follow-up after consultation with cardiology. Return instructions to the emergency department reviewed. Disposition is discharged home in stable condition. History & Record Review Discussion w/independent historian: Patient Additional record(s) reviewed:: Prior labs Lab Data Attestation: I reviewed the patient's lab results. Labs: Laboratory Results - last 24 hr 06/02/24 18:05 WBC 11.3 H RBC 4.77 Hgb 14.9 Hct 43.7 MCV 91.6 MCH 31.2 MCHC 34.1 RDW Std Deviation 43.2 RDW Coeff of Reggie 12.9 Plt Count 494 H MPV 10.3 Immature Gran % (Auto) 0.500 Neut % (Auto) 54.6 Lymph % (Auto) 25.2 [place] % (Auto) 11.8 H Eos % (Auto) 7.1 H Baso % (Auto) 0.8 Absolute Neuts (auto) 6.1 Absolute Lymphs (auto) 2.83 Nucleated RBC % 0 Sodium 142 Potassium 3.3 Chloride Direct 103 Carbon Dioxide 25.7 Anion Gap 13 BUN 18 Creatinine 0.97 Estim Creat Clear Calc 71.25 Est GFR (MDRD) Non-Af 89 BUN/Creatinine Ratio 18.5 Glucose 128 H Calcium 9.2 Magnesium 2.1 Total Bilirubin 0.81 AST 27 ALT 27 Alkaline Phosphatase 85 Total Protein 7.2 Albumin 3.7 Globulin 3.5 Albumin/Globulin Ratio 1.1 Radiography Chest X-Ray - ED: 1 View, Read by ED Physician, Read by Radiologist and - (AICD, no acute process.) Diagnostic Testing: Clinical Impression(s) from Imaging Studies Chest X-Ray 06/02/24 18:15 IMPRESSION: No radiographic evidence of acute cardiopulmonary disease Reading Location: [facility] Discharge Plan Triage Chief Complaint: Palpitations ED Provider: [place] Dx/Rx/DC Orders Clinical Impression: AICD discharge, Atrial fibrillation with RVR Instructions: ED AFIB Prescriptions: No Action atorvastatin 40 mg tablet 40 mg PO DAILY Qty: 90 3RF furosemide [Lasix] 40 mg tablet 40 mg PO DAILY Qty: 90 3RF lisinopril 5 mg tablet 5 mg PO DAILY Qty: 90 3RF Brilinta 90 mg tablet 90 mg PO BID Qty: 60 7RF acetaminophen 500 mg tablet Patient Comments: [NO ORIGINAL SIG] oxycodone 5 mg tablet metoprolol tartrate 50 mg tablet 50 mg PO BID Qty: 60 0RF Primary Care Provider: Tiarra Roach Referrals: Tiarra Roach, ROOM SERVICE RUNNER-C [Primary Care Provider] - Activity Restrictions/Additional Instructions: Follow-up with your EP plumber helper on Monday as scheduled at [facility]. You need to increase your metoprolol to tartrate to 50 mg 3 times a day. Take it with breakfast, lunch, and dinner. If you run into problems or have another discharge from your AICD, call Dr. Wells in the office. Return with chest pain, shortness of breath, new or worsening symptoms. Print Language: Hebrew Disposition Disposition: Home, Self Care
[2024-06-02 18:29] LABS: Absolute Lymphocyte Count 2.83 X10^3/uL (0.83-4.51); Absolute Neutrophil Count 6.1 X10^3/uL (2.0-7.7); Basophil# 0.09 X10^3/uL; Basophil% 0.8 % (0-1); Eosinophils% 7.1 % (0-5); Hematocrit 43.7 % (40-54); Hemoglobin 14.9 g/dL (13.0-16.5); Lymphocyte # 2.83 X10^3/ul (0.83-4.51); Lymphocyte % 25.2 % (19-41); Mean Corp Hgb Conc 34.1 g/dL (32-36); Mean Corpuscular Hgb 31.2 pg (27.0-32.0); Mean Corpuscular Volume 91.6 fL (80-94); Mean Platelet Vol. 10.3 fl (6.2-12.0); Monocyte# 1.33 X10^3/uL; Monocyte% 11.8 % (0-10); NRBC Flagged by Analyzer 0 % (0-5); Neutrophil # 6.14 X10^3/uL (2.7-7.7); Neutrophil % 54.6 % (47-70); Platelet Count 494 K/mm3 (150-450); RBC Distribution Width CV 12.9 % (11.6-14.6); RBC Distribution Width SD 43.2 fl (35.1-43.9); Red Blood Count 4.77 M/mm3 (4.6-6.2); White Blood Count 11.3 K/mm3 (4.4-11.0)
[2024-06-02 19:11] LABS: ALB/GLOB Ratio 1.1 RATIO (0.9-2.4); AST(SGOT) 27 U/L (<=37); Alanine Aminotransfer ALT/SGPT 27 U/L (<=46); Albumin, Serum 3.7 g/dL (3.4-4.8); Alkaline Phosphatase 85 U/L (40-129); Anion Gap 13 (5-15); BUN 18 mg/dL (4-19); BUN/Creat Ratio 18.5 RATIO (10-20); Calcium 9.2 mg/dL (7.6-11.0); Carbon Dioxide 25.7 mmol/L (22.0-29.0); Chloride 103 mmol/L (96-108); Creatinine, Serum 0.97 mg/dL (0.70-1.20); EST Glomerular Filtration Rate 89 (>60); Estimated Creatinine Clearance 71.25 ml/min (50-250); Globulin 3.5 g/dL (2.2-4.2); Glucose 128 mg/dL (70-99); Magnesium 2.1 mg/dL (1.5-2.2); Potassium 3.3 mmol/L (3.3-5.1); Protein, Total 7.2 g/dL (5.9-8.4); Sodium Level 142 mmol/L (133-145); Total Bilirubin 0.81 mg/dL (0.00-1.30)
[2024-06-02 20:00] VITALS: BP 122/75
[2024-06-02] MEDS: Metoprolol Tartrate 50 MG Tablet PO (20:23)
== END 2024-06-02 20:25 | disposition home or self-care (01) ==
PROVIDERS: Emergency Provider Emergency Medicine; PCP Nurse Practitioner Family; Visit Provider Emergency Medicine
DX: I48.91 Unspecified atrial fibrillation (principal); I47.20 Ventricular tachycardia, unspecified; I25.10 Atherosclerotic heart disease of native coronary artery without angina pectoris; I10 Essential (primary) hypertension; I25.5 Ischemic cardiomyopathy; R73.9 Hyperglycemia, unspecified; I25.2 Old myocardial infarction; F17.210 Nicotine dependence, cigarettes, uncomplicated; Z79.02 Long term (current) use of antithrombotics/antiplatelets; Z79.899 Other long term (current) drug therapy; Z95.810 Presence of automatic (implantable) cardiac defibrillator; Z95.5 Presence of coronary angioplasty implant and graft
CPT/HCPCS: 71045; 80053; 83735; 85025; 93005; 99285